=== PATIENT | male | born 1935 | race Caucasian/White ===

== ENCOUNTER 2020-08-25 08:39 | Outpatient (REF) | payer MEDICARE, OTHER, SELFPAY ==
[2020-08-25 09:41] LABS: MANUAL DIFF FLAG NO
[2020-08-25 09:47] LABS: Basophils Percent Auto 0.3 % (0-2); Eosinophils Absolute Auto 0.3 X10*3/uL (0.0-0.4); Eosinophils Percent Auto 2.5 % (0-4); Hematocrit 40.7 % (42-52); Hemoglobin 13.3 g/dl (14.0-18.0); Imm Gran Abs Auto 0.08 X10*3/uL (0.00-0.03); Imm Gran Pct Auto 0.8 % (0.0-0.4); Lymphocytes Absolute Auto 1.9 X10*3/uL (1.2-4.9); Lymphocytes Percent Auto 17.6 % (20-40); Mean Corpuscular HGB Conc 32.7 g/dl (31.0-36.0); Mean Corpuscular Hemoglobin 29.8 pg (27.0-33.0); Mean Corpuscular Volume 91.1 fL (80-98); Mean Platelet Volume 10.4 fL (9.4-12.4); Monocytes Absolute Auto 0.9 X10*3/uL (0.1-1.2); Monocytes Percent Auto 8.2 % (2-11); Neutrophils Absolute Auto 7.5 X10*3/uL (2.0-8.3); Neutrophils Percent Auto 70.6 % (45-73); Platelet Count 199 X10*3/uL (160-400); Red Blood Count 4.47 X10*6/uL (4.60-5.80); Red Cell Distribution Width 15.3 % (11.0-16.0); White Blood Count 10.6 X10*3/uL (4.8-10.8)
[2020-08-25 10:10] LABS: Alanine Aminotransferase 21 U/L (0-40); Albumin Level 4.2 g/dL (3.5-5.0); Alkaline Phosphatase 49 U/L (39-117); Anion Gap 13 (12-20); Aspartate Amino Transferase 16 U/L (5-37); Bilirubin Total 0.5 mg/dL (0.0-1.0); Blood Urea Nitrogen 30 mg/dL (9-16); Calcium 9.2 mg/dL (8.4-10.2); Carbon Dioxide 29 mmol/L (22-29); Chloride 104 mmol/L (96-108); Estimated Glomerular Filt Rate 57; Glucose Random 129 mg/dL (60-115); Potassium 4.6 mmol/l (3.3-5.1); Sodium 141 mmol/L (135-145); Total Protein 6.5 g/dL (6.5-8.0)
[2020-08-25 11:59] LABS: Erythrocyte Sedimentation Rate 6 MM/HR (0-15)
[2020-08-28 14:36] LABS: Prot Elec - Alpha1 0.3 g/dL (0.2-0.3); Prot Elec - Alpha2 0.7 g/dL (0.5-0.9); Prot Elec - Beta 1 0.4 g/dL (0.4-0.6); Prot Elec - Beta 2 0.3 g/dL (0.2-0.5); Prot Elec - Gamma 0.7 g/dL (0.8-1.7); Prot Elec - Total Protein 6.3 g/dL (6.1-8.1)
[2020-08-29 13:12] LABS: IgA 167 mg/dL (70-320); IgG 796 mg/dL (600-1540); IgM 42 mg/dL (50-300)
== END 2020-08-25 08:40 | disposition home or self-care (01) ==
LOC: HO.LAB 08:39
PROVIDERS: PCP Internal Medicine; Visit Provider Student in an Organized Health Care Education/Training Program
DX: M35.3 Polymyalgia rheumatica (principal)
CPT/HCPCS: 36415; 80053; 82784; 84155; 84165; 85025; 85652; 86140; 86334; 86335

== ENCOUNTER → 2020-09-01 14:20 | Outpatient (BNVA) | payer MEDICARE, OTHER, SELFPAY | PROVIDERS: PCP Internal Medicine; Referring Provider Internal Medicine; Visit Provider Student in an Organized Health Care Education/Training Program | DX: M35.3 Polymyalgia rheumatica (principal); D80.1 Nonfamilial hypogammaglobulinemia; Z79.52 Long term (current) use of systemic steroids | CPT/HCPCS: 99214 ==

== ENCOUNTER 2020-09-28 08:35 | Outpatient (REF) | payer MEDICARE, OTHER, SELFPAY ==
[2020-09-28 09:57] LABS: C Reactive Protein 0.09 mg/dL (< or = 0.50)
[2020-09-28 10:17] LABS: Erythrocyte Sedimentation Rate 2 MM/HR (0-15)
== END 2020-09-28 08:36 | disposition home or self-care (01) ==
LOC: HO.LAB 08:35
PROVIDERS: PCP Internal Medicine; Visit Provider Student in an Organized Health Care Education/Training Program
DX: M35.3 Polymyalgia rheumatica (principal)
CPT/HCPCS: 36415; 85652; 86140

== ENCOUNTER 2020-10-30 08:18 | Outpatient (REF) | payer MEDICARE, OTHER, SELFPAY ==
[2020-10-30 10:18] LABS: MANUAL DIFF FLAG NO
[2020-10-30 10:42] LABS: Basophils Percent Auto 0.2 % (0-2); Eosinophils Absolute Auto 0.2 X10*3/uL (0.0-0.4); Eosinophils Percent Auto 1.7 % (0-4); Hematocrit 42.6 % (42-52); Hemoglobin 13.9 g/dl (14.0-18.0); Imm Gran Abs Auto 0.07 X10*3/uL (0.00-0.03); Imm Gran Pct Auto 0.7 % (0.0-0.4); Lymphocytes Absolute Auto 1.7 X10*3/uL (1.2-4.9); Lymphocytes Percent Auto 18.5 % (20-40); Mean Corpuscular HGB Conc 32.6 g/dl (31.0-36.0); Mean Corpuscular Hemoglobin 30.2 pg (27.0-33.0); Mean Corpuscular Volume 92.6 fL (80-98); Monocytes Absolute Auto 0.9 X10*3/uL (0.1-1.2); Monocytes Percent Auto 9.8 % (2-11); Neutrophils Absolute Auto 6.5 X10*3/uL (2.0-8.3); Neutrophils Percent Auto 69.1 % (45-73); Platelet Count 222 X10*3/uL (160-400); White Blood Count 9.4 X10*3/uL (4.8-10.8)
[2020-10-30 11:01] LABS: Alanine Aminotransferase 20 U/L (0-40); Albumin Level 4.1 g/dL (3.5-5.0); Alkaline Phosphatase 42 U/L (39-117); Anion Gap 15 (12-20); Aspartate Amino Transferase 16 U/L (5-37); Bilirubin Total 0.7 mg/dL (0.0-1.0); Blood Urea Nitrogen 30 mg/dL (9-16); C Reactive Protein 0.07 mg/dL (< or = 0.50); Calcium 8.8 mg/dL (8.4-10.2); Carbon Dioxide 30 mmol/L (22-29); Chloride 103 mmol/L (96-108); Estimated Glomerular Filt Rate 52; Glucose Random 118 mg/dL (60-115); Potassium 4.3 mmol/l (3.3-5.1); Sodium 144 mmol/L (135-145); Total Protein 6.5 g/dL (6.5-8.0)
[2020-10-30 12:01] LABS: Erythrocyte Sedimentation Rate 3 MM/HR (0-15)
[2020-10-31 15:13] LABS: IgA 166 mg/dL (70-320); IgG 717 mg/dL (600-1540); IgM 40 mg/dL (50-300); Prot Elec - Albumin 3.9 g/dL (3.8-4.8); Prot Elec - Alpha1 0.3 g/dL (0.2-0.3); Prot Elec - Alpha2 0.6 g/dL (0.5-0.9); Prot Elec - Beta 1 0.4 g/dL (0.4-0.6); Prot Elec - Beta 2 0.3 g/dL (0.2-0.5); Prot Elec - Gamma 0.7 g/dL (0.8-1.7); Prot Elec - Total Protein 6.1 g/dL (6.1-8.1)
== END 2020-10-30 08:19 | disposition home or self-care (01) ==
LOC: HO.LAB 08:18
PROVIDERS: PCP Internal Medicine; Visit Provider Student in an Organized Health Care Education/Training Program
DX: M35.3 Polymyalgia rheumatica (principal)
CPT/HCPCS: 36415; 80053; 82784; 84155; 84165; 85025; 85652; 86140; 86334; 86335

== ENCOUNTER → 2020-11-22 08:43 | Outpatient (BNVA) | payer MEDICARE, OTHER, SELFPAY | PROVIDERS: PCP Internal Medicine; Visit Provider Student in an Organized Health Care Education/Training Program | DX: Z13.89 Encounter for screening for other disorder (principal) | CPT/HCPCS: Q3014 ==

== ENCOUNTER 2020-12-05 09:05 | Outpatient (REF) | payer MEDICARE, OTHER, SELFPAY ==
[2020-12-05 10:04] LABS: C Reactive Protein 0.03 mg/dL (< or = 0.50)
[2020-12-05 10:38] LABS: Erythrocyte Sedimentation Rate 2 MM/HR (0-15)
== END 2020-12-05 09:06 | disposition home or self-care (01) ==
LOC: HO.LAB 09:05
PROVIDERS: PCP Internal Medicine; Visit Provider Student in an Organized Health Care Education/Training Program
DX: M35.3 Polymyalgia rheumatica (principal)
CPT/HCPCS: 36415; 85652; 86140

== ENCOUNTER 2021-01-10 08:52 | Outpatient (REF) | payer MEDICARE, OTHER, SELFPAY ==
[2021-01-10 09:31] LABS: MANUAL DIFF FLAG NO
[2021-01-10 09:34] LABS: Basophils Percent Auto 0.4 % (0-2); Eosinophils Absolute Auto 0.2 X10*3/uL (0.0-0.4); Hemoglobin 13.5 g/dl (14.0-18.0); Imm Gran Abs Auto 0.06 X10*3/uL (0.00-0.03); Imm Gran Pct Auto 0.7 % (0.0-0.4); Lymphocytes Absolute Auto 1.5 X10*3/uL (1.2-4.9); Lymphocytes Percent Auto 17.7 % (20-40); Mean Corpuscular HGB Conc 33.8 g/dl (31.0-36.0); Mean Corpuscular Hemoglobin 31.1 pg (27.0-33.0); Mean Corpuscular Volume 92.2 fL (80-98); Mean Platelet Volume 10.6 fL (9.4-12.4); Monocytes Absolute Auto 0.8 X10*3/uL (0.1-1.2); Monocytes Percent Auto 9.5 % (2-11); Neutrophils Absolute Auto 5.9 X10*3/uL (2.0-8.3); Neutrophils Percent Auto 69.7 % (45-73); Platelet Count 209 X10*3/uL (160-400); Red Blood Count 4.34 X10*6/uL (4.60-5.80); Red Cell Distribution Width 13.3 % (11.0-16.0); White Blood Count 8.4 X10*3/uL (4.8-10.8)
[2021-01-10 10:01] LABS: Alanine Aminotransferase 21 U/L (0-40); Albumin Level 4.1 g/dL (3.5-5.0); Alkaline Phosphatase 47 U/L (39-117); Anion Gap 13 (12-20); Aspartate Amino Transferase 16 U/L (5-37); Bilirubin Total 0.7 mg/dL (0.0-1.0); Blood Urea Nitrogen 31 mg/dL (9-16); Calcium 9.6 mg/dL (8.4-10.2); Carbon Dioxide 31 mmol/L (22-29); Chloride 103 mmol/L (96-108); Estimated Glomerular Filt Rate 53; Glucose Random 112 mg/dL (60-115); Potassium 4.8 mmol/L (3.3-5.1); Sodium 142 mmol/L (135-145); Total Protein 6.2 g/dL (6.5-8.0)
[2021-01-12 15:17] LABS: IgA 154 mg/dL (70-320); IgG 650 mg/dL (600-1540); IgM 29 mg/dL (50-300)
== END 2021-01-10 08:53 | disposition home or self-care (01) ==
LOC: HO.LAB 08:52
PROVIDERS: PCP Internal Medicine; Visit Provider Internal Medicine Medical Oncology
DX: D80.1 Nonfamilial hypogammaglobulinemia (principal)
CPT/HCPCS: 36415; 80053; 82784; 85025; 86334

== ENCOUNTER 2021-01-30 11:22 | Outpatient (REF) | payer MEDICARE, OTHER, SELFPAY ==
[2021-01-30 13:01] LABS: C Reactive Protein 0.05 mg/dL (< or = 0.50)
[2021-01-30 14:44] LABS: Erythrocyte Sedimentation Rate 5 MM/HR (0-15)
== END 2021-01-30 11:23 | disposition home or self-care (01) ==
LOC: HO.LAB 11:22
PROVIDERS: PCP Internal Medicine; Visit Provider Student in an Organized Health Care Education/Training Program
DX: M35.3 Polymyalgia rheumatica (principal); D80.1 Nonfamilial hypogammaglobulinemia; Z87.891 Personal history of nicotine dependence; Z96.669 Presence of unspecified artificial ankle joint; Z96.653 Presence of artificial knee joint, bilateral; Z79.52 Long term (current) use of systemic steroids; Z79.82 Long term (current) use of aspirin; Z79.899 Other long term (current) drug therapy
CPT/HCPCS: 36415; 85652; 86140; 99212

== ENCOUNTER 2021-03-01 09:30 | Outpatient (REF) | payer MEDICARE, OTHER, SELFPAY ==
[2021-03-01 10:54] LABS: MANUAL DIFF FLAG NO
[2021-03-01 11:04] LABS: Basophils Percent Auto 0.4 % (0-2); Eosinophils Absolute Auto 0.1 X10*3/uL (0.0-0.4); Eosinophils Percent Auto 1.7 % (0-4); Hematocrit 40.1 % (42-52); Hemoglobin 13.3 g/dl (14.0-18.0); Imm Gran Abs Auto 0.04 X10*3/uL (0.00-0.03); Imm Gran Pct Auto 0.5 % (0.0-0.4); Lymphocytes Absolute Auto 1.1 X10*3/uL (1.2-4.9); Lymphocytes Percent Auto 14.9 % (20-40); Mean Corpuscular HGB Conc 33.2 g/dl (31.0-36.0); Mean Corpuscular Hemoglobin 30.7 pg (27.0-33.0); Mean Corpuscular Volume 92.6 fL (80-98); Mean Platelet Volume 10.9 fL (9.4-12.4); Monocytes Absolute Auto 0.7 X10*3/uL (0.1-1.2); Monocytes Percent Auto 9.3 % (2-11); Neutrophils Absolute Auto 5.6 X10*3/uL (2.0-8.3); Neutrophils Percent Auto 73.2 % (45-73); Platelet Count 225 X10*3/uL (160-400); Red Blood Count 4.33 X10*6/uL (4.60-5.80); Red Cell Distribution Width 13.3 % (11.0-16.0); White Blood Count 7.6 X10*3/uL (4.8-10.8)
[2021-03-01 11:22] LABS: Alanine Aminotransferase 27 U/L (0-40); Albumin Level 4.2 g/dL (3.5-5.0); Alkaline Phosphatase 50 U/L (39-117); Anion Gap 12 (12-20); Aspartate Amino Transferase 24 U/L (5-37); Bilirubin Total 0.8 mg/dL (0.0-1.0); Blood Urea Nitrogen 33 mg/dL (9-16); Calcium 9.1 mg/dL (8.4-10.2); Carbon Dioxide 29 mmol/L (22-29); Chloride 105 mmol/L (96-108); Estimated Glomerular Filt Rate 55; Glucose Random 114 mg/dL (60-115); Sodium 142 mmol/L (135-145); Total Protein 6.3 g/dL (6.5-8.0)
[2021-03-04 10:06] LABS: IgA 157 mg/dL (70-320); IgG 668 mg/dL (600-1540); IgM 31 mg/dL (50-300)
== END 2021-03-01 09:31 | disposition home or self-care (01) ==
LOC: HO.LAB 09:30
PROVIDERS: PCP Internal Medicine; Visit Provider Internal Medicine Medical Oncology
DX: D47.2 Monoclonal gammopathy (principal)
CPT/HCPCS: 36415; 80053; 82784; 85025; 86334

== ENCOUNTER 2021-03-22 16:01 | Outpatient (REF) | payer MEDICARE, OTHER, SELFPAY ==
--- NOTE | ~2021-03-22 | XR_ITS ---
EXAMINATION: XR CHEST CLINICAL INFORMATION: Hiccups COMPARISON: None TECHNIQUE: 2 views of the chest were obtained. FINDINGS: Median sternotomy wires appear intact. Surgical clips overlie the mediastinum. The lungs are well expanded. There is no focal consolidation, edema, or effusion. No pneumothorax. The cardiomediastinal silhouette is within normal limits of size with a calcified aorta. No acute osseous abnormality. Radiopaque anchor in the left humeral head. XR/XR chest 2V IMPRESSION: No acute pulmonary finding.
== END 2021-03-22 16:02 | disposition home or self-care (01) ==
LOC: HO.XRAY 16:01
PROVIDERS: PCP Internal Medicine; Visit Provider Internal Medicine
DX: R06.6 Hiccough (principal)
CPT/HCPCS: 71046

== ENCOUNTER 2021-03-30 06:31 | Outpatient (REF) | payer MEDICARE, OTHER, SELFPAY ==
[2021-03-30 07:04] LABS: MANUAL DIFF FLAG NO
[2021-03-30 07:07] LABS: Basophils Percent Auto 0.4 % (0-2); Eosinophils Absolute Auto 0.2 X10*3/uL (0.0-0.4); Eosinophils Percent Auto 1.6 % (0-4); Hematocrit 35.3 % (42-52); Hemoglobin 11.7 g/dl (14.0-18.0); Imm Gran Abs Auto 0.12 X10*3/uL (0.00-0.03); Imm Gran Pct Auto 1.1 % (0.0-0.4); Lymphocytes Absolute Auto 2.3 X10*3/uL (1.2-4.9); Lymphocytes Percent Auto 20.8 % (20-40); Mean Corpuscular HGB Conc 33.1 g/dl (31.0-36.0); Mean Corpuscular Hemoglobin 30.8 pg (27.0-33.0); Mean Corpuscular Volume 92.9 fL (80-98); Mean Platelet Volume 10.5 fL (9.4-12.4); Monocytes Absolute Auto 1.2 X10*3/uL (0.1-1.2); Monocytes Percent Auto 11.5 % (2-11); Neutrophils Percent Auto 64.6 % (45-73); Platelet Count 241 X10*3/uL (160-400); Red Cell Distribution Width 13.1 % (11.0-16.0); White Blood Count 10.8 X10*3/uL (4.8-10.8)
[2021-03-30 07:32] LABS: Alanine Aminotransferase 21 U/L (0-40); Albumin Level 4.1 g/dL (3.5-5.0); Alkaline Phosphatase 41 U/L (39-117); Anion Gap 13 (12-20); Aspartate Amino Transferase 16 U/L (5-37); Bilirubin Total 0.7 mg/dL (0.0-1.0); Blood Urea Nitrogen 57 mg/dL (9-16); C Reactive Protein 0.09 mg/dL (< or = 0.50); Calcium 9.4 mg/dL (8.4-10.2); Carbon Dioxide 29 mmol/L (22-29); Chloride 104 mmol/L (96-108); Estimated Glomerular Filt Rate 54; Glucose Random 125 mg/dL (60-115); Sodium 141 mmol/L (135-145)
[2021-03-30 08:02] LABS: Erythrocyte Sedimentation Rate 5 MM/HR (0-15)
[2021-04-02 09:52] LABS: IgA 144 mg/dL (70-320); IgG 620 mg/dL (600-1540); IgM 26 mg/dL (50-300)
== END 2021-03-30 06:32 | disposition home or self-care (01) ==
LOC: HO.LAB 06:31
PROVIDERS: Student in an Organized Health Care Education/Training Program; PCP Internal Medicine; Visit Provider Internal Medicine Medical Oncology
DX: M35.3 Polymyalgia rheumatica (principal); D80.1 Nonfamilial hypogammaglobulinemia
CPT/HCPCS: 36415; 80053; 82784; 85025; 85652; 86140; 86334

== ENCOUNTER 2021-04-03 09:17 | Outpatient (REF) | payer MEDICARE, OTHER, SELFPAY ==
[2021-04-03 09:44] LABS: MANUAL DIFF FLAG NO
[2021-04-03 09:47] LABS: Basophils Percent Auto 0.3 % (0-2); Eosinophils Absolute Auto 0.2 X10*3/uL (0.0-0.4); Eosinophils Percent Auto 1.5 % (0-4); Hematocrit 25.1 % (42-52); Hemoglobin 8.1 g/dl (14.0-18.0); Imm Gran Abs Auto 0.06 X10*3/uL (0.00-0.03); Imm Gran Pct Auto 0.6 % (0.0-0.4); Lymphocytes Absolute Auto 1.1 X10*3/uL (1.2-4.9); Lymphocytes Percent Auto 10.4 % (20-40); Mean Corpuscular HGB Conc 32.3 g/dl (31.0-36.0); Mean Platelet Volume 10.2 fL (9.4-12.4); Monocytes Absolute Auto 0.7 X10*3/uL (0.1-1.2); Monocytes Percent Auto 7.2 % (2-11); Neutrophils Absolute Auto 8.3 X10*3/uL (2.0-8.3); Platelet Count 214 X10*3/uL (160-400); Red Cell Distribution Width 14.2 % (11.0-16.0); White Blood Count 10.3 X10*3/uL (4.8-10.8)
[2021-04-03 10:16] LABS: Anion Gap 11 (12-20); Blood Urea Nitrogen 29 mg/dL (9-16); Calcium 8.5 mg/dL (8.4-10.2); Carbon Dioxide 27 mmol/L (22-29); Chloride 107 mmol/L (96-108); Estimated Glomerular Filt Rate > 60; Glucose Random 123 mg/dL (60-115); Sodium 141 mmol/L (135-145)
== END 2021-04-03 09:18 | disposition home or self-care (01) ==
LOC: HO.LAB 09:17
PROVIDERS: PCP Internal Medicine; Visit Provider Internal Medicine
DX: R53.83 Other fatigue (principal); D64.9 Anemia, unspecified
CPT/HCPCS: 36415; 80048; 85025

== ENCOUNTER 2021-04-04 06:01 | Outpatient (REF) | payer MEDICARE, OTHER, SELFPAY ==
[2021-04-04 06:26] LABS: MANUAL DIFF FLAG NO
[2021-04-04 06:27] LABS: Basophils Percent Auto 0.2 % (0-2); Eosinophils Absolute Auto 0.2 X10*3/uL (0.0-0.4); Eosinophils Percent Auto 2.1 % (0-4); Hemoglobin 8.2 g/dl (14.0-18.0); Imm Gran Abs Auto 0.05 X10*3/uL (0.00-0.03); Imm Gran Pct Auto 0.5 % (0.0-0.4); Lymphocytes Absolute Auto 1.5 X10*3/uL (1.2-4.9); Lymphocytes Percent Auto 14.2 % (20-40); Mean Corpuscular HGB Conc 32.8 g/dl (31.0-36.0); Mean Corpuscular Hemoglobin 30.8 pg (27.0-33.0); Mean Platelet Volume 9.2 fL (9.4-12.4); Monocytes Percent Auto 9.3 % (2-11); Neutrophils Absolute Auto 7.6 X10*3/uL (2.0-8.3); Neutrophils Percent Auto 73.7 % (45-73); Platelet Count 216 X10*3/uL (160-400); Red Blood Count 2.66 X10*6/uL (4.60-5.80); Red Cell Distribution Width 14.5 % (11.0-16.0); White Blood Count 10.2 X10*3/uL (4.8-10.8)
== END 2021-04-04 06:02 | disposition home or self-care (01) ==
LOC: HO.LAB 06:01
PROVIDERS: PCP Internal Medicine; Visit Provider Internal Medicine
DX: K92.2 Gastrointestinal hemorrhage, unspecified (principal); R53.83 Other fatigue
CPT/HCPCS: 36415; 85025

== ENCOUNTER 2021-04-06 09:48 | Outpatient (REF) | payer MEDICARE, OTHER, SELFPAY ==
[2021-04-06 10:14] LABS: MANUAL DIFF FLAG NO
[2021-04-06 10:17] LABS: Basophils Percent Auto 0.1 % (0-2); Eosinophils Percent Auto 0.3 % (0-4); Hematocrit 28.5 % (42-52); Hemoglobin 9.3 g/dl (14.0-18.0); Imm Gran Abs Auto 0.04 X10*3/uL (0.00-0.03); Imm Gran Pct Auto 0.4 % (0.0-0.4); Lymphocytes Absolute Auto 0.8 X10*3/uL (1.2-4.9); Lymphocytes Percent Auto 8.1 % (20-40); Mean Corpuscular HGB Conc 32.6 g/dl (31.0-36.0); Mean Corpuscular Hemoglobin 30.8 pg (27.0-33.0); Mean Corpuscular Volume 94.4 fL (80-98); Mean Platelet Volume 9.2 fL (9.4-12.4); Monocytes Absolute Auto 0.9 X10*3/uL (0.1-1.2); Monocytes Percent Auto 8.8 % (2-11); NRBC Pct Auto 0.2 /100WBC (0.0-0.2); Neutrophils Absolute Auto 8.1 X10*3/uL (2.0-8.3); Neutrophils Percent Auto 82.3 % (45-73); Platelet Count 243 X10*3/uL (160-400); Red Blood Count 3.02 X10*6/uL (4.60-5.80); Red Cell Distribution Width 14.3 % (11.0-16.0); White Blood Count 9.8 X10*3/uL (4.8-10.8)
[2021-04-06 10:46] LABS: Anion Gap 13 (12-20); Blood Urea Nitrogen 26 mg/dL (9-16); Carbon Dioxide 26 mmol/L (22-29); Chloride 109 mmol/L (96-108); Estimated Glomerular Filt Rate 58; Glucose Random 130 mg/dL (60-115); Potassium 4.2 mmol/L (3.3-5.1); Sodium 144 mmol/L (135-145)
== END 2021-04-06 09:49 | disposition home or self-care (01) ==
LOC: HO.LAB 09:48
PROVIDERS: PCP Internal Medicine; Visit Provider Internal Medicine
DX: D64.9 Anemia, unspecified (principal); R53.83 Other fatigue
CPT/HCPCS: 36415; 80048; 85025

== ENCOUNTER 2021-04-09 06:15 | Outpatient (REF) | payer MEDICARE, OTHER, SELFPAY ==
[2021-04-09 07:21] LABS: MANUAL DIFF FLAG NO
[2021-04-09 07:35] LABS: Basophils Percent Auto 0.2 % (0-2); Eosinophils Absolute Auto 0.1 X10*3/uL (0.0-0.4); Eosinophils Percent Auto 1.7 % (0-4); Hematocrit 31.4 % (42-52); Imm Gran Abs Auto 0.06 X10*3/uL (0.00-0.03); Imm Gran Pct Auto 0.7 % (0.0-0.4); Lymphocytes Percent Auto 11.5 % (20-40); Mean Corpuscular HGB Conc 31.8 g/dl (31.0-36.0); Mean Corpuscular Hemoglobin 30.6 pg (27.0-33.0); Monocytes Percent Auto 11.2 % (2-11); Neutrophils Absolute Auto 6.3 X10*3/uL (2.0-8.3); Neutrophils Percent Auto 74.7 % (45-73); Platelet Count 312 X10*3/uL (160-400); Red Blood Count 3.27 X10*6/uL (4.60-5.80); Red Cell Distribution Width 15.1 % (11.0-16.0); White Blood Count 8.5 X10*3/uL (4.8-10.8)
== END 2021-04-09 06:16 | disposition home or self-care (01) ==
LOC: HO.LAB 06:15
PROVIDERS: PCP Internal Medicine; Visit Provider Internal Medicine
DX: K92.2 Gastrointestinal hemorrhage, unspecified (principal)
CPT/HCPCS: 36415; 85025

== ENCOUNTER 2021-04-13 06:05 | Outpatient (REF) | payer MEDICARE, OTHER, SELFPAY ==
[2021-04-13 07:16] LABS: MANUAL DIFF FLAG NO
[2021-04-13 07:24] LABS: Basophils Percent Auto 0.3 % (0-2); Eosinophils Absolute Auto 0.2 X10*3/uL (0.0-0.4); Eosinophils Percent Auto 1.7 % (0-4); Hematocrit 34.4 % (42-52); Hemoglobin 10.9 g/dl (14.0-18.0); Imm Gran Abs Auto 0.06 X10*3/uL (0.00-0.03); Imm Gran Pct Auto 0.7 % (0.0-0.4); Lymphocytes Absolute Auto 1.1 X10*3/uL (1.2-4.9); Lymphocytes Percent Auto 12.2 % (20-40); Mean Corpuscular HGB Conc 31.7 g/dl (31.0-36.0); Mean Corpuscular Hemoglobin 30.6 pg (27.0-33.0); Mean Corpuscular Volume 96.6 fL (80-98); Mean Platelet Volume 10.3 fL (9.4-12.4); Monocytes Absolute Auto 1.1 X10*3/uL (0.1-1.2); Monocytes Percent Auto 12.1 % (2-11); Neutrophils Absolute Auto 6.5 X10*3/uL (2.0-8.3); Platelet Count 308 X10*3/uL (160-400); Red Blood Count 3.56 X10*6/uL (4.60-5.80); Red Cell Distribution Width 15.5 % (11.0-16.0); White Blood Count 8.9 X10*3/uL (4.8-10.8)
== END 2021-04-13 06:06 | disposition home or self-care (01) ==
LOC: HO.LAB 06:05
PROVIDERS: PCP Internal Medicine; Visit Provider Internal Medicine
DX: D64.9 Anemia, unspecified (principal)
CPT/HCPCS: 36415; 85025

== ENCOUNTER 2021-04-20 06:10 | Outpatient (REF) | payer MEDICARE, OTHER, SELFPAY ==
[2021-04-20 07:22] LABS: MANUAL DIFF FLAG NO
[2021-04-20 07:29] LABS: Basophils Percent Auto 0.3 % (0-2); Eosinophils Absolute Auto 0.2 X10*3/uL (0.0-0.4); Eosinophils Percent Auto 2.9 % (0-4); Hematocrit 37.5 % (42-52); Imm Gran Abs Auto 0.03 X10*3/uL (0.00-0.03); Imm Gran Pct Auto 0.4 % (0.0-0.4); Lymphocytes Absolute Auto 0.9 X10*3/uL (1.2-4.9); Lymphocytes Percent Auto 11.9 % (20-40); Mean Corpuscular Hemoglobin 30.6 pg (27.0-33.0); Mean Corpuscular Volume 95.7 fL (80-98); Mean Platelet Volume 10.6 fL (9.4-12.4); Monocytes Absolute Auto 0.8 X10*3/uL (0.1-1.2); Monocytes Percent Auto 11.1 % (2-11); Neutrophils Absolute Auto 5.4 X10*3/uL (2.0-8.3); Neutrophils Percent Auto 73.4 % (45-73); Platelet Count 226 X10*3/uL (160-400); Red Blood Count 3.92 X10*6/uL (4.60-5.80); Red Cell Distribution Width 14.6 % (11.0-16.0); White Blood Count 7.3 X10*3/uL (4.8-10.8)
== END 2021-04-20 06:11 | disposition home or self-care (01) ==
LOC: HO.LAB 06:10
PROVIDERS: PCP Internal Medicine; Visit Provider Internal Medicine
DX: D64.9 Anemia, unspecified (principal)
CPT/HCPCS: 36415; 85025

== ENCOUNTER → 2021-05-03 09:39 | Outpatient (BNVA) | payer MEDICARE, OTHER, SELFPAY | PROVIDERS: PCP Internal Medicine; Visit Provider Student in an Organized Health Care Education/Training Program | DX: M35.3 Polymyalgia rheumatica (principal); Z79.52 Long term (current) use of systemic steroids | CPT/HCPCS: 99212 ==

== ENCOUNTER 2021-05-04 06:03 | Outpatient (REF) | payer MEDICARE, OTHER, SELFPAY ==
[2021-05-04 07:47] LABS: MANUAL DIFF FLAG NO
[2021-05-04 07:53] LABS: Basophils Percent Auto 0.4 % (0-2); Eosinophils Absolute Auto 0.2 X10*3/uL (0.0-0.4); Eosinophils Percent Auto 2.5 % (0-4); Hematocrit 40.3 % (42-52); Hemoglobin 12.8 g/dl (14.0-18.0); Imm Gran Abs Auto 0.04 X10*3/uL (0.00-0.03); Imm Gran Pct Auto 0.6 % (0.0-0.4); Lymphocytes Absolute Auto 1.1 X10*3/uL (1.2-4.9); Lymphocytes Percent Auto 16.2 % (20-40); Mean Corpuscular HGB Conc 31.8 g/dl (31.0-36.0); Mean Corpuscular Hemoglobin 29.6 pg (27.0-33.0); Mean Corpuscular Volume 93.1 fL (80-98); Mean Platelet Volume 11.1 fL (9.4-12.4); Monocytes Absolute Auto 0.6 X10*3/uL (0.1-1.2); Monocytes Percent Auto 8.7 % (2-11); Neutrophils Absolute Auto 4.9 X10*3/uL (2.0-8.3); Neutrophils Percent Auto 71.6 % (45-73); Platelet Count 232 X10*3/uL (160-400); Red Blood Count 4.33 X10*6/uL (4.60-5.80); Red Cell Distribution Width 13.3 % (11.0-16.0); White Blood Count 6.8 X10*3/uL (4.8-10.8)
== END 2021-05-04 06:04 | disposition home or self-care (01) ==
LOC: HO.LAB 06:03
PROVIDERS: PCP Internal Medicine; Visit Provider Internal Medicine
DX: R53.83 Other fatigue (principal); K92.2 Gastrointestinal hemorrhage, unspecified
CPT/HCPCS: 36415; 85025

== ENCOUNTER 2021-05-18 05:57 | Outpatient (REF) | payer MEDICARE, OTHER, SELFPAY ==
[2021-05-18 07:16] LABS: MANUAL DIFF FLAG NO
[2021-05-18 07:19] LABS: Basophils Absolute Auto 0.1 X10*3/uL (0.0-0.2); Basophils Percent Auto 0.7 % (0-2); Eosinophils Absolute Auto 0.2 X10*3/uL (0.0-0.4); Eosinophils Percent Auto 2.3 % (0-4); Hematocrit 39.6 % (42-52); Hemoglobin 12.6 g/dl (14.0-18.0); Imm Gran Abs Auto 0.03 X10*3/uL (0.00-0.03); Imm Gran Pct Auto 0.4 % (0.0-0.4); Lymphocytes Absolute Auto 1.3 X10*3/uL (1.2-4.9); Lymphocytes Percent Auto 16.7 % (20-40); Mean Corpuscular HGB Conc 31.8 g/dl (31.0-36.0); Mean Corpuscular Hemoglobin 28.9 pg (27.0-33.0); Mean Corpuscular Volume 90.8 fL (80-98); Mean Platelet Volume 10.9 fL (9.4-12.4); Monocytes Absolute Auto 0.9 X10*3/uL (0.1-1.2); Monocytes Percent Auto 11.4 % (2-11); Neutrophils Absolute Auto 5.1 X10*3/uL (2.0-8.3); Neutrophils Percent Auto 68.5 % (45-73); Platelet Count 254 X10*3/uL (160-400); Red Blood Count 4.36 X10*6/uL (4.60-5.80); White Blood Count 7.5 X10*3/uL (4.8-10.8)
== END 2021-05-18 05:58 | disposition home or self-care (01) ==
LOC: HO.LAB 05:57
PROVIDERS: PCP Internal Medicine; Visit Provider Internal Medicine
DX: D64.9 Anemia, unspecified (principal)
CPT/HCPCS: 36415; 85025

== ENCOUNTER 2021-05-31 06:04 | Outpatient (REF) | payer MEDICARE, OTHER, SELFPAY ==
[2021-05-31 07:29] LABS: C Reactive Protein 0.06 mg/dL (< or = 0.50)
[2021-05-31 08:02] LABS: Erythrocyte Sedimentation Rate 5 MM/HR (0-15)
[2021-06-01 15:41] LABS: MANUAL DIFF FLAG NO
[2021-06-01 15:45] LABS: Basophils Absolute Auto 0.1 X10*3/uL (0.0-0.2); Basophils Percent Auto 0.7 % (0-2); Eosinophils Absolute Auto 0.2 X10*3/uL (0.0-0.4); Eosinophils Percent Auto 2.5 % (0-4); Hematocrit 40.1 % (42-52); Imm Gran Abs Auto 0.04 X10*3/uL (0.00-0.03); Imm Gran Pct Auto 0.5 % (0.0-0.4); Lymphocytes Absolute Auto 1.4 X10*3/uL (1.2-4.9); Lymphocytes Percent Auto 18.2 % (20-40); Mean Corpuscular HGB Conc 32.4 g/dl (31.0-36.0); Mean Corpuscular Hemoglobin 29.5 pg (27.0-33.0); Mean Corpuscular Volume 90.9 fL (80-98); Mean Platelet Volume 11.1 fL (9.4-12.4); Monocytes Percent Auto 12.9 % (2-11); Neutrophils Percent Auto 65.2 % (45-73); Platelet Count 222 X10*3/uL (160-400); Red Blood Count 4.41 X10*6/uL (4.60-5.80); Red Cell Distribution Width 13.3 % (11.0-16.0); White Blood Count 7.7 X10*3/uL (4.8-10.8)
== END 2021-05-31 06:05 | disposition home or self-care (01) ==
LOC: HO.LAB 06:04
PROVIDERS: PCP Internal Medicine; Visit Provider Student in an Organized Health Care Education/Training Program
DX: M35.3 Polymyalgia rheumatica (principal); D64.9 Anemia, unspecified
CPT/HCPCS: 36415; 85025; 85652; 86140

== ENCOUNTER 2021-07-02 05:58 | Outpatient (REF) | payer MEDICARE, OTHER, SELFPAY ==
[2021-07-02 06:40] LABS: MANUAL DIFF FLAG NO
[2021-07-02 06:53] LABS: Basophils Percent Auto 0.3 % (0-2); Eosinophils Absolute Auto 0.1 X10*3/uL (0.0-0.4); Eosinophils Percent Auto 0.6 % (0-4); Hematocrit 43.4 % (42-52); Hemoglobin 13.9 g/dl (14.0-18.0); Imm Gran Abs Auto 0.08 X10*3/uL (0.00-0.03); Imm Gran Pct Auto 0.7 % (0.0-0.4); Lymphocytes Absolute Auto 1.3 X10*3/uL (1.2-4.9); Lymphocytes Percent Auto 11.5 % (20-40); Mean Corpuscular Hemoglobin 28.9 pg (27.0-33.0); Mean Corpuscular Volume 90.2 fL (80-98); Mean Platelet Volume 10.9 fL (9.4-12.4); Monocytes Absolute Auto 1.1 X10*3/uL (0.1-1.2); Monocytes Percent Auto 9.8 % (2-11); Neutrophils Absolute Auto 8.4 X10*3/uL (2.0-8.3); Neutrophils Percent Auto 77.1 % (45-73); Platelet Count 241 X10*3/uL (160-400); Red Blood Count 4.81 X10*6/uL (4.60-5.80); Red Cell Distribution Width 13.8 % (11.0-16.0); White Blood Count 10.9 X10*3/uL (4.8-10.8)
== END 2021-07-02 05:59 | disposition home or self-care (01) ==
LOC: HO.LAB 05:58
PROVIDERS: PCP Internal Medicine; Visit Provider Internal Medicine
DX: D64.9 Anemia, unspecified (principal)
CPT/HCPCS: 36415; 85025

== ENCOUNTER → 2021-07-12 08:40 | Outpatient (BNVA) | payer MEDICARE, OTHER, SELFPAY | PROVIDERS: PCP Internal Medicine; Visit Provider Nurse Practitioner Family | DX: M35.3 Polymyalgia rheumatica (principal); Z87.891 Personal history of nicotine dependence; Z79.52 Long term (current) use of systemic steroids; Z79.899 Other long term (current) drug therapy | CPT/HCPCS: 99212 ==

== ENCOUNTER → 2021-08-09 09:28 | Outpatient (BNVA) | payer MEDICARE, OTHER, SELFPAY | PROVIDERS: PCP Internal Medicine; Visit Provider Nurse Practitioner Family | DX: M35.3 Polymyalgia rheumatica (principal); Z79.52 Long term (current) use of systemic steroids | CPT/HCPCS: 99212 ==

== ENCOUNTER 2021-08-10 05:59 | Outpatient (REF) | payer MEDICARE, OTHER, SELFPAY ==
[2021-08-10 08:18] LABS: C Reactive Protein 0.07 mg/dL (< or = 0.50)
[2021-08-10 08:49] LABS: Erythrocyte Sedimentation Rate 4 MM/HR (0-15)
== END 2021-08-10 06:00 | disposition home or self-care (01) ==
LOC: HO.LAB 05:59
PROVIDERS: PCP Internal Medicine; Visit Provider Nurse Practitioner Family
DX: M35.3 Polymyalgia rheumatica (principal)
CPT/HCPCS: 36415; 85652; 86140

== ENCOUNTER 2021-09-06 05:57 | Outpatient (REF) | payer MEDICARE, OTHER, SELFPAY ==
[2021-09-06 07:58] LABS: C Reactive Protein 0.08 mg/dL (< or = 0.50)
[2021-09-06 08:19] LABS: Erythrocyte Sedimentation Rate 5 MM/HR (0-15)
== END 2021-09-06 05:58 | disposition home or self-care (01) ==
LOC: HO.LAB 05:57
PROVIDERS: PCP Internal Medicine; Visit Provider Nurse Practitioner Family
DX: M35.3 Polymyalgia rheumatica (principal)
CPT/HCPCS: 36415; 85652; 86140

== ENCOUNTER → 2021-09-10 13:58 | Outpatient (BNVA) | payer MEDICARE, OTHER, SELFPAY | PROVIDERS: PCP Internal Medicine; Visit Provider Nurse Practitioner Family | DX: M35.3 Polymyalgia rheumatica (principal); Z79.52 Long term (current) use of systemic steroids | CPT/HCPCS: 99212 ==

== ENCOUNTER 2021-11-14 05:48 | Outpatient (REF) | payer MEDICARE, OTHER, SELFPAY ==
[2021-11-14 07:32] LABS: Alanine Aminotransferase 24 U/L (0-40); Albumin Level 4.5 g/dL (3.5-5.0); Alkaline Phosphatase 71 U/L (39-117); Anion Gap 13 (12-20); Aspartate Amino Transferase 14 U/L (5-37); Bilirubin Total 0.9 mg/dL (0.0-1.0); Blood Urea Nitrogen 28 mg/dL (9-16); Calcium 9.8 mg/dL (8.4-10.2); Carbon Dioxide 29 mmol/L (22-29); Chloride 105 mmol/L (96-108); Estimated Glomerular Filt Rate > 60; Glucose Random 107 mg/dL (60-115); Potassium 5.2 mmol/L (3.3-5.1); Sodium 142 mmol/L (135-145)
[2021-11-14 07:49] LABS: Erythrocyte Sedimentation Rate 2 MM/HR (0-15)
[2021-11-14 08:08] LABS: Estimated Average Glucose 111 mg/dL; Hemoglobin A1c % 5.5 %
== END 2021-11-14 05:49 | disposition home or self-care (01) ==
LOC: HO.LAB 05:48
PROVIDERS: Absent Provider Nurse Practitioner Family; PCP Internal Medicine; Visit Provider Internal Medicine
DX: M35.3 Polymyalgia rheumatica (principal); E11.9 Type 2 diabetes mellitus without complications
CPT/HCPCS: 36415; 80053; 83036; 85652

== ENCOUNTER 2021-12-05 05:59 | Outpatient (REF) | payer MEDICARE, SELFPAY ==
[2021-12-05 08:05] LABS: Alanine Aminotransferase 24 U/L (0-40); Albumin Level 4.2 g/dL (3.5-5.0); Alkaline Phosphatase 54 U/L (39-117); Anion Gap 13 (12-20); Aspartate Amino Transferase 18 U/L (5-37); Bilirubin Total 0.9 mg/dL (0.0-1.0); Blood Urea Nitrogen 23 mg/dL (9-16); C Reactive Protein 0.08 mg/dL (< or = 0.50); Calcium 9.4 mg/dL (8.4-10.2); Carbon Dioxide 29 mmol/L (22-29); Chloride 104 mmol/L (96-108); Estimated Glomerular Filt Rate 59; Glucose Random 99 mg/dL (60-115); Potassium 5.1 mmol/L (3.3-5.1); Sodium 141 mmol/L (135-145); Total Protein 6.6 g/dL (6.5-8.0)
[2021-12-05 08:15] LABS: Erythrocyte Sedimentation Rate 4 MM/HR (0-15)
[2021-12-05 08:40] LABS: Appearance Urine CLEAR; Color Urine YELLOW; Glucose Urine UA NEG (NEG); Leukocyte Esterase Urine NEG (NEG); Nitrite Urine NEG (NEG); Urine Blood NEG (NEG); Urine Ketones NEG (NEG); Urine Protein NEG (NEG-TRACE)
[2021-12-05 08:52] LABS: RBC Urine 0 /HPF (0); WBC Urine 0-2 /HPF (0-4)
== END 2021-12-05 06:00 | disposition home or self-care (01) ==
LOC: HO.LAB 05:59
PROVIDERS: PCP Internal Medicine; Visit Provider Nurse Practitioner Family
DX: M35.3 Polymyalgia rheumatica (principal)
CPT/HCPCS: 36415; 80053; 81001; 85652; 86140

== ENCOUNTER → 2021-12-10 12:49 | Outpatient (BNVA) | payer MEDICARE, SELFPAY | PROVIDERS: PCP Internal Medicine; Visit Provider Nurse Practitioner Family | DX: M35.3 Polymyalgia rheumatica (principal); Z79.52 Long term (current) use of systemic steroids | CPT/HCPCS: 99212 ==

== ENCOUNTER 2021-12-11 10:55 | Outpatient (REF) | payer MEDICARE, SELFPAY ==
[2021-12-11 11:25] LABS: MANUAL DIFF FLAG NO
[2021-12-11 11:38] LABS: Basophils Percent Auto 0.3 % (0-2); Eosinophils Absolute Auto 0.1 X10*3/uL (0.0-0.4); Eosinophils Percent Auto 1.5 % (0-4); Hemoglobin 13.7 g/dl (14.0-18.0); Imm Gran Abs Auto 0.02 X10*3/uL (0.00-0.03); Imm Gran Pct Auto 0.3 % (0.0-0.4); Lymphocytes Absolute Auto 1.1 X10*3/uL (1.2-4.9); Lymphocytes Percent Auto 18.3 % (20-40); Mean Corpuscular HGB Conc 33.4 g/dl (31.0-36.0); Mean Corpuscular Hemoglobin 30.5 pg (27.0-33.0); Mean Corpuscular Volume 91.3 fL (80.0-98.0); Mean Platelet Volume 9.8 fL (9.4-12.4); Monocytes Absolute Auto 0.7 X10*3/uL (0.1-1.2); Monocytes Percent Auto 11.1 % (2-11); Neutrophils Absolute Auto 4.1 x10*3/uL (2.0-8.3); Neutrophils Percent Auto 68.5 % (45-73); Platelet Count 216 X10*3/uL (160-400); Red Blood Count 4.49 X10*6/uL (4.60-5.80)
[2021-12-11 12:11] LABS: Alanine Aminotransferase 21 U/L (0-40); Albumin Level 4.4 g/dL (3.5-5.0); Alkaline Phosphatase 58 U/L (39-117); Anion Gap 13 (12-20); Aspartate Amino Transferase 18 U/L (5-37); Bilirubin Total 1.1 mg/dL (0.0-1.0); Blood Urea Nitrogen 25 mg/dL (9-16); Calcium 9.9 mg/dL (8.4-10.2); Carbon Dioxide 28 mmol/L (22-29); Chloride 103 mmol/L (96-108); Estimated Glomerular Filt Rate 54; Glucose Random 100 mg/dL (60-115); Sodium 139 mmol/L (135-145); Total Protein 6.9 g/dL (6.5-8.0)
[2021-12-16 06:45] LABS: IgA 180 mg/dL (70-320); IgG 883 mg/dL (600-1540); IgM 36 mg/dL (50-300)
== END 2021-12-11 10:56 | disposition home or self-care (01) ==
LOC: HO.LAB 10:55
PROVIDERS: Visit Provider Internal Medicine Medical Oncology
DX: D80.1 Nonfamilial hypogammaglobulinemia (principal)
CPT/HCPCS: 36415; 80053; 82784; 85025; 86334

== ENCOUNTER → 2022-03-19 20:52 | Outpatient (REF) | payer MEDICARE, SELFPAY | LOC: HO.SL 20:52 | PROVIDERS: Visit Provider Internal Medicine | DX: G47.33 Obstructive sleep apnea (adult) (pediatric) (principal) | CPT/HCPCS: 95811 ==

== ENCOUNTER 2022-06-03 05:54 | Outpatient (REF) | payer MEDICARE, SELFPAY ==
[2022-06-03 06:00] LABS: MANUAL DIFF FLAG NO
[2022-06-03 07:26] LABS: Basophils Percent Auto 0.4 % (0-2); Eosinophils Absolute Auto 0.2 X10*3/uL (0.0-0.4); Eosinophils Percent Auto 1.7 % (0-4); Hematocrit 42.1 % (42.0-52.0); Hemoglobin 13.8 g/dl (14.0-18.0); Imm Gran Abs Auto 0.04 X10*3/uL (0.00-0.03); Imm Gran Pct Auto 0.4 % (0.0-0.4); Lymphocytes Absolute Auto 1.4 X10*3/uL (1.2-4.9); Lymphocytes Percent Auto 15.6 % (20-40); Mean Corpuscular HGB Conc 32.8 g/dl (31.0-36.0); Mean Corpuscular Hemoglobin 29.7 pg (27.0-33.0); Mean Corpuscular Volume 90.7 fL (80.0-98.0); Mean Platelet Volume 10.6 fL (9.4-12.4); Monocytes Absolute Auto 0.9 X10*3/uL (0.1-1.2); Monocytes Percent Auto 9.7 % (2-11); Neutrophils Absolute Auto 6.5 x10*3/uL (2.0-8.3); Neutrophils Percent Auto 72.2 % (45-73); Platelet Count 209 X10*3/uL (160-400); Red Blood Count 4.64 X10*6/uL (4.60-5.80); Red Cell Distribution Width 13.5 % (11.0-16.0); White Blood Count 9.1 X10*3/uL (4.8-10.8)
[2022-06-03 07:53] LABS: Alanine Aminotransferase 31 U/L (0-40); Albumin Level 4.4 g/dL (3.5-5.0); Alkaline Phosphatase 49 U/L (39-117); Anion Gap 10 (12-20); Aspartate Amino Transferase 20 U/L (5-37); Bilirubin Total 0.8 mg/dL (0.0-1.0); Blood Urea Nitrogen 23 mg/dL (9-16); Calcium 9.1 mg/dL (8.4-10.2); Carbon Dioxide 30 mmol/L (22-29); Chloride 105 mmol/L (96-108); Cholesterol 136 mg/dL; Estimated Glomerular Filt Rate > 60; Glucose Fasting 93 mg/dL (60-99); HDL Cholesterol 54 mg/dL; LDL Cholesterol Calculated 61 mg/dl; Potassium 4.7 mmol/L (3.3-5.1); Sodium 140 mmol/L (135-145); Total Protein 6.7 g/dL (6.5-8.0); Triglycerides 105 mg/dL
[2022-06-03 08:17] LABS: Free T4 (Free Thyroxine) 1.13 ng/dL (0.71-1.85); Thyroid Stimulating Hormone 1.15 uIU/mL (0.32-4.0)
[2022-06-03 08:18] LABS: Erythrocyte Sedimentation Rate 2 MM/HR (0-15)
[2022-06-03 15:49] LABS: C Reactive Protein 0.03 mg/dL (< or = 0.50)
== END 2022-06-03 05:55 | disposition home or self-care (01) ==
LOC: HO.LAB 05:54
PROVIDERS: Nurse Practitioner Family; PCP Internal Medicine; Visit Provider Internal Medicine
DX: M35.3 Polymyalgia rheumatica (principal); R53.83 Other fatigue; E78.5 Hyperlipidemia, unspecified
CPT/HCPCS: 36415; 80053; 80061; 84439; 84443; 85025; 85652; 86140

== ENCOUNTER → 2022-06-07 12:39 | Outpatient (BNVA) | payer MEDICARE, SELFPAY | PROVIDERS: PCP Internal Medicine; Visit Provider Nurse Practitioner Family | DX: M35.3 Polymyalgia rheumatica (principal); Z79.52 Long term (current) use of systemic steroids | CPT/HCPCS: Q3014 ==

== ENCOUNTER 2022-08-14 06:03 | Outpatient (REF) | payer MEDICARE, SELFPAY ==
[2022-08-14 06:10] LABS: MANUAL DIFF FLAG NO
[2022-08-14 07:38] LABS: Basophils Percent Auto 0.5 % (0-2); Eosinophils Absolute Auto 0.2 X10*3/uL (0.0-0.4); Hematocrit 40.4 % (42.0-52.0); Hemoglobin 13.2 g/dl (14.0-18.0); Imm Gran Abs Auto 0.04 X10*3/uL (0.00-0.03); Imm Gran Pct Auto 0.5 % (0.0-0.4); Lymphocytes Absolute Auto 1.2 X10*3/uL (1.2-4.9); Lymphocytes Percent Auto 15.1 % (20-40); Mean Corpuscular HGB Conc 32.7 g/dl (31.0-36.0); Mean Corpuscular Hemoglobin 29.7 pg (27.0-33.0); Mean Platelet Volume 10.5 fL (9.4-12.4); Monocytes Absolute Auto 0.8 X10*3/uL (0.1-1.2); Monocytes Percent Auto 10.4 % (2-11); Neutrophils Absolute Auto 5.6 x10*3/uL (2.0-8.3); Neutrophils Percent Auto 71.5 % (45-73); Platelet Count 247 X10*3/uL (160-400); Red Blood Count 4.44 X10*6/uL (4.60-5.80); Red Cell Distribution Width 13.5 % (11.0-16.0); White Blood Count 7.9 X10*3/uL (4.8-10.8)
[2022-08-14 07:53] LABS: Alanine Aminotransferase 29 U/L (0-40); Albumin Level 4.4 g/dL (3.5-5.0); Alkaline Phosphatase 67 U/L (39-117); Anion Gap 16 (12-20); Aspartate Amino Transferase 22 U/L (5-37); Bilirubin Direct 0.4 mg/dL (0.0-0.5); Bilirubin Total 1.1 mg/dL (0.0-1.0); Blood Urea Nitrogen 25 mg/dL (9-16); Carbon Dioxide 25 mmol/L (22-29); Chloride 105 mmol/L (96-108); Cholesterol 130 mg/dL; Estimated Glomerular Filt Rate > 60; Glucose Fasting 86 mg/dL (60-99); HDL Cholesterol 40 mg/dL; LDL Cholesterol Calculated 63 mg/dl; Potassium 4.9 mmol/L (3.3-5.1); Sodium 141 mmol/L (135-145); Total Protein 6.8 g/dL (6.5-8.0); Triglycerides 136 mg/dL
[2022-08-14 08:17] LABS: Prostate Specific Antigen 0.55 ng/mL (<0.05-4.0)
== END 2022-08-14 06:04 | disposition home or self-care (01) ==
LOC: HO.LAB 06:03
PROVIDERS: PCP Internal Medicine; Visit Provider Internal Medicine
DX: Z00.00 Encounter for general adult medical examination without abnormal findings (principal); Z12.5 Encounter for screening for malignant neoplasm of prostate; R53.83 Other fatigue; E78.5 Hyperlipidemia, unspecified
CPT/HCPCS: 36415; 80051; 80061; 80076; 82565; 82947; 84153; 84520; 85025

== ENCOUNTER 2022-12-17 08:00 | Outpatient (RCR) | payer MEDICARE, SELFPAY | END 2022-12-26 13:51 | disposition home or self-care (01) | LOC: HO.PT 08:00 | PROVIDERS: PCP Internal Medicine | DX: M54.16 Radiculopathy, lumbar region (principal) | CPT/HCPCS: 97110; 97162 ==

== ENCOUNTER 2023-02-27 05:54 | Outpatient (REF) | payer MEDICARE, SELFPAY ==
[2023-02-27 05:57] LABS: MANUAL DIFF FLAG NO
[2023-02-27 06:14] LABS: Basophils Absolute Auto 0.1 X10*3/uL (0.0-0.2); Basophils Percent Auto 0.6 % (0-2); Eosinophils Absolute Auto 0.3 X10*3/uL (0.0-0.4); Eosinophils Percent Auto 2.6 % (0-4); Hematocrit 25.2 % (42.0-52.0); Hemoglobin 8.6 g/dl (14.0-18.0); Imm Gran Abs Auto 0.58 X10*3/uL (0.00-0.03); Imm Gran Pct Auto 4.6 % (0.0-0.4); Lymphocytes Absolute Auto 0.9 X10*3/uL (1.2-4.9); Mean Corpuscular HGB Conc 34.1 g/dl (31.0-36.0); Mean Corpuscular Hemoglobin 30.4 pg (27.0-33.0); Monocytes Absolute Auto 1.2 X10*3/uL (0.1-1.2); Monocytes Percent Auto 9.5 % (2-11); NRBC Pct Auto 0.2 /100WBC (0.0-0.2); Neutrophils Absolute Auto 9.6 x10*3/uL (2.0-8.3); Neutrophils Percent Auto 75.7 % (45-73); Platelet Count 456 X10*3/uL (160-400); Red Blood Count 2.83 X10*6/uL (4.60-5.80); White Blood Count 12.7 X10*3/uL (4.8-10.8)
[2023-02-27 06:25] LABS: Alanine Aminotransferase 147 U/L (0-40); Albumin Level 2.7 g/dL (3.5-5.0); Alkaline Phosphatase 87 U/L (39-117); Anion Gap 12 (12-20); Aspartate Amino Transferase 86 U/L (5-37); Bilirubin Total 0.7 mg/dL (0.0-1.0); Blood Urea Nitrogen 19 mg/dL (9-16); Carbon Dioxide 28 mmol/L (22-29); Chloride 102 mmol/L (96-108); Estimated Glomerular Filt Rate > 60; Glucose Random 103 mg/dL (60-115); Potassium 3.6 mmol/L (3.3-5.1); Sodium 138 mmol/L (135-145); Total Protein 4.6 g/dL (6.5-8.0)
== END 2023-02-27 05:55 | disposition home or self-care (01) ==
LOC: HO.MMNH1L 05:54
PROVIDERS: Visit Provider Family Medicine
DX: E78.5 Hyperlipidemia, unspecified (principal); I25.10 Atherosclerotic heart disease of native coronary artery without angina pectoris
CPT/HCPCS: 36415; 80053; 85025

== ENCOUNTER 2023-02-28 05:52 | Outpatient (REF) | payer MEDICARE, SELFPAY ==
[2023-02-28 05:55] LABS: MANUAL DIFF FLAG NO
[2023-02-28 06:11] LABS: Basophils Absolute Auto 0.1 X10*3/uL (0.0-0.2); Basophils Percent Auto 0.4 % (0-2); Eosinophils Absolute Auto 0.4 X10*3/uL (0.0-0.4); Eosinophils Percent Auto 3.2 % (0-4); Hemoglobin 9.5 g/dl (14.0-18.0); Imm Gran Abs Auto 0.52 X10*3/uL (0.00-0.03); Lymphocytes Absolute Auto 1.2 X10*3/uL (1.2-4.9); Lymphocytes Percent Auto 9.4 % (20-40); Mean Corpuscular HGB Conc 33.9 g/dl (31.0-36.0); Mean Corpuscular Hemoglobin 30.4 pg (27.0-33.0); Mean Corpuscular Volume 89.7 fL (80.0-98.0); Mean Platelet Volume 8.8 fL (9.4-12.4); Monocytes Percent Auto 7.9 % (2-11); Neutrophils Absolute Auto 9.8 x10*3/uL (2.0-8.3); Neutrophils Percent Auto 75.1 % (45-73); Platelet Count 504 X10*3/uL (160-400); Red Blood Count 3.12 X10*6/uL (4.60-5.80); Red Cell Distribution Width 13.1 % (11.0-16.0); White Blood Count 13.1 X10*3/uL (4.8-10.8)
== END 2023-02-28 05:53 | disposition home or self-care (01) ==
LOC: HO.MMNH1L 05:52
PROVIDERS: Visit Provider Family Medicine
DX: I10 Essential (primary) hypertension (principal)
CPT/HCPCS: 36415; 85025

== ENCOUNTER 2023-03-03 06:40 | Outpatient (REF) | payer MEDICARE, SELFPAY ==
[2023-03-03 06:44] LABS: MANUAL DIFF FLAG NO
[2023-03-03 06:58] LABS: Basophils Absolute Auto 0.1 X10*3/uL (0.0-0.2); Basophils Percent Auto 0.6 % (0-2); Eosinophils Absolute Auto 0.5 X10*3/uL (0.0-0.4); Eosinophils Percent Auto 5.9 % (0-4); Hematocrit 27.8 % (42.0-52.0); Imm Gran Abs Auto 0.31 X10*3/uL (0.00-0.03); Imm Gran Pct Auto 3.5 % (0.0-0.4); Lymphocytes Absolute Auto 1.2 X10*3/uL (1.2-4.9); Mean Corpuscular HGB Conc 32.4 g/dl (31.0-36.0); Mean Corpuscular Hemoglobin 29.6 pg (27.0-33.0); Mean Corpuscular Volume 91.4 fL (80.0-98.0); Mean Platelet Volume 8.7 fL (9.4-12.4); Monocytes Absolute Auto 0.7 X10*3/uL (0.1-1.2); Monocytes Percent Auto 8.3 % (2-11); Neutrophils Absolute Auto 6.1 x10*3/uL (2.0-8.3); Neutrophils Percent Auto 68.7 % (45-73); Platelet Count 641 X10*3/uL (160-400); Red Blood Count 3.04 X10*6/uL (4.60-5.80); Red Cell Distribution Width 13.3 % (11.0-16.0); White Blood Count 8.9 X10*3/uL (4.8-10.8)
[2023-03-03 07:42] LABS: Anion Gap 12 (12-20); Blood Urea Nitrogen 18 mg/dL (9-16); Calcium 7.9 mg/dL (8.4-10.2); Carbon Dioxide 27 mmol/L (22-29); Chloride 106 mmol/L (96-108); Estimated Glomerular Filt Rate > 60; Glucose Random 79 mg/dL (60-115); Sodium 141 mmol/L (135-145)
== END 2023-03-03 06:41 | disposition home or self-care (01) ==
LOC: HO.MMNH1L 06:40
PROVIDERS: Visit Provider Family Medicine
DX: E78.5 Hyperlipidemia, unspecified (principal); I25.10 Atherosclerotic heart disease of native coronary artery without angina pectoris
CPT/HCPCS: 36415; 80048; 85025

== ENCOUNTER 2023-06-02 06:04 | Outpatient (REF) | payer MEDICARE, SELFPAY ==
[2023-06-02 09:01] LABS: MANUAL DIFF FLAG NO
[2023-06-02 09:06] LABS: Basophils Percent Auto 0.7 % (0-2); Eosinophils Absolute Auto 0.3 X10*3/uL (0.0-0.4); Eosinophils Percent Auto 4.2 % (0-4); Hemoglobin 12.6 g/dl (14.0-18.0); Imm Gran Abs Auto 0.01 X10*3/uL (0.00-0.03); Imm Gran Pct Auto 0.2 % (0.0-0.4); Lymphocytes Absolute Auto 1.2 X10*3/uL (1.2-4.9); Lymphocytes Percent Auto 19.3 % (20-40); Mean Corpuscular HGB Conc 32.3 g/dl (31.0-36.0); Mean Corpuscular Hemoglobin 28.8 pg (27.0-33.0); Mean Platelet Volume 10.5 fL (9.4-12.4); Monocytes Absolute Auto 0.6 X10*3/uL (0.1-1.2); Monocytes Percent Auto 10.8 % (2-11); Neutrophils Absolute Auto 3.9 x10*3/uL (2.0-8.3); Neutrophils Percent Auto 64.8 % (45-73); Platelet Count 315 X10*3/uL (160-400); Red Blood Count 4.38 X10*6/uL (4.60-5.80); Red Cell Distribution Width 14.4 % (11.0-16.0)
[2023-06-02 09:16] LABS: Estimated Average Glucose 114 mg/dL; Hemoglobin A1c % 5.6 %
== END 2023-06-02 06:05 | disposition home or self-care (01) ==
LOC: HO.LAB 06:04
PROVIDERS: PCP Internal Medicine; Visit Provider Internal Medicine
DX: R53.83 Other fatigue (principal); E11.9 Type 2 diabetes mellitus without complications
CPT/HCPCS: 36415; 83036; 85025

== ENCOUNTER 2023-06-30 10:47 | Outpatient (REF) | payer MEDICARE, SELFPAY ==
--- NOTE | ~2023-06-30 | XR_ITS ---
EXAMINATION: XR CHEST CLINICAL INFORMATION: Cough, status post Covid COMPARISON: Chest 03/22/2021 TECHNIQUE: 2 views of the chest were obtained. FINDINGS: The patient is status post median sternotomy for CABG surgery. No significant abnormality is noted involving the heart, lungs, mediastinum, bony thorax or soft tissues. XR/XR chest 2V IMPRESSION: No acute cardiopulmonary disease.
== END 2023-06-30 10:48 | disposition home or self-care (01) ==
LOC: HO.XRAY 10:47
PROVIDERS: PCP Internal Medicine; Visit Provider Internal Medicine
DX: R05.9 Cough, unspecified (principal); Z86.16 Personal history of COVID-19
CPT/HCPCS: 71046

== ENCOUNTER 2023-08-06 10:16 | Outpatient (REF) | payer MEDICARE, SELFPAY ==
--- NOTE | ~2023-08-06 | XR_ITS ---
EXAMINATION: XR CERVICAL SPINE CLINICAL INFORMATION: Cervical pain and limited range of motion. COMPARISON: None available. TECHNIQUE: 3 views of the cervical spine were obtained. FINDINGS: Minimal reversal of the lower cervical lordosis. No acute fracture or subluxation. No loss of vertebral body height. Loss of intervertebral disc height with prominent degenerative endplate changes at C5-C6 and C6-C7. More mild remaining intervertebral disc degeneration. Prominent multilevel bilateral facet arthropathy. No concerning lytic or blastic osseous lesion. Normal atlantoaxial alignment. Unremarkable prevertebral soft tissues. XR/XR cervical spine 3V IMPRESSION: 1. Minimal reversal of the lower cervical lordosis. 2. Multilevel degenerative disc disease, most prominent at C5-C6 and C6-C7. Prominent multilevel bilateral facet arthropathy.
== END 2023-08-06 10:17 | disposition home or self-care (01) ==
LOC: HO.XRAY 10:16
PROVIDERS: PCP Internal Medicine; Visit Provider Internal Medicine
DX: M54.2 Cervicalgia (principal)
CPT/HCPCS: 72040

== ENCOUNTER 2023-10-24 06:00 | Outpatient (REF) | payer MEDICARE, SELFPAY ==
[2023-10-24 06:14] LABS: MANUAL DIFF FLAG NO
[2023-10-24 07:57] LABS: Estimated Average Glucose 120 mg/dL; Hemoglobin A1c % 5.8 % (<6.0)
[2023-10-24 08:00] LABS: Basophils Percent Auto 0.5 % (0-2); Eosinophils Absolute Auto 0.1 X10*3/uL (0.0-0.4); Eosinophils Percent Auto 2.4 % (0-4); Hematocrit 39.9 % (42.0-52.0); Imm Gran Abs Auto 0.03 X10*3/uL (0.00-0.03); Imm Gran Pct Auto 0.5 % (0.0-0.4); Lymphocytes Absolute Auto 1.1 X10*3/uL (1.2-4.9); Lymphocytes Percent Auto 19.2 % (20-40); Mean Corpuscular HGB Conc 32.6 g/dl (31.0-36.0); Mean Corpuscular Hemoglobin 29.8 pg (27.0-33.0); Mean Corpuscular Volume 91.5 fL (80.0-98.0); Mean Platelet Volume 10.5 fL (9.4-12.4); Monocytes Absolute Auto 0.6 X10*3/uL (0.1-1.2); Monocytes Percent Auto 10.7 % (2-11); Neutrophils Absolute Auto 3.8 x10*3/uL (2.0-8.3); Neutrophils Percent Auto 66.7 % (45-73); Platelet Count 242 X10*3/uL (160-400); Red Blood Count 4.36 X10*6/uL (4.60-5.80); Red Cell Distribution Width 13.5 % (11.0-16.0); White Blood Count 5.7 X10*3/uL (4.8-10.8)
[2023-10-24 08:33] LABS: Alanine Aminotransferase 22 U/L (0-40); Albumin Level 4.1 g/dL (3.5-5.0); Alkaline Phosphatase 60 U/L (39-117); Anion Gap 12 (12-20); Aspartate Amino Transferase 16 U/L (5-37); Bilirubin Total 0.5 mg/dL (0.0-1.0); Blood Urea Nitrogen 27 mg/dL (9-16); Calcium 9.3 mg/dL (8.4-10.2); Carbon Dioxide 30 mmol/L (22-29); Chloride 108 mmol/L (96-108); Cholesterol 124 mg/dL (<200); Estimated Glomerular Filt Rate > 60; Glucose Random 91 mg/dL (60-115); HDL Cholesterol 43 mg/dL (>40); LDL Cholesterol Calculated 63 mg/dL (<100); Potassium 4.5 mmol/L (3.3-5.1); Sodium 145 mmol/L (135-145); Total Protein 6.7 g/dL (6.5-8.0); Triglycerides 90 mg/dL (<150)
== END 2023-10-24 06:01 | disposition home or self-care (01) ==
LOC: HO.LAB 06:00
PROVIDERS: PCP Internal Medicine; Visit Provider Internal Medicine
DX: Z00.00 Encounter for general adult medical examination without abnormal findings (principal); Z12.5 Encounter for screening for malignant neoplasm of prostate; E11.9 Type 2 diabetes mellitus without complications
CPT/HCPCS: 36415; 80053; 80061; 83036; 84153; 85025

== ENCOUNTER 2025-03-25 05:58 | Outpatient (REF) | payer MEDICARE, SELFPAY ==
[2025-03-25 06:13] LABS: MANUAL DIFF FLAG NO
[2025-03-25 07:43] LABS: Basophils Percent Auto 0.4 % (0-2); Eosinophils Absolute Auto 0.2 X10*3/uL (0.0-0.4); Hematocrit 37.7 % (42.0-52.0); Hemoglobin 12.8 g/dl (14.0-18.0); Imm Gran Abs Auto 0.02 X10*3/uL (0.00-0.03); Imm Gran Pct Auto 0.3 % (0.0-0.4); Lymphocytes Absolute Auto 1.2 X10*3/uL (1.2-4.9); Lymphocytes Percent Auto 17.4 % (20-40); Mean Corpuscular Hemoglobin 29.8 pg (27.0-33.0); Mean Corpuscular Volume 87.9 fL (80.0-98.0); Mean Platelet Volume 10.7 fL (9.4-12.4); Monocytes Absolute Auto 0.8 X10*3/uL (0.1-1.2); Monocytes Percent Auto 11.5 % (2-11); Neutrophils Absolute Auto 4.5 x10*3/uL (2.0-8.3); Neutrophils Percent Auto 67.4 % (45-73); Platelet Count 222 X10*3/uL (160-400); Red Blood Count 4.29 X10*6/uL (4.60-5.80); Red Cell Distribution Width 14.1 % (11.0-16.0); White Blood Count 6.7 X10*3/uL (4.8-10.8)
[2025-03-25 08:22] LABS: Alanine Aminotransferase 32 U/L (0-40); Albumin Level 4.2 g/dL (3.5-5.0); Alkaline Phosphatase 75 U/L (39-117); Anion Gap 12 (12-20); Aspartate Amino Transferase 27 U/L (5-37); Bilirubin Total 0.7 mg/dL (0.0-1.0); Blood Urea Nitrogen 40 mg/dL (9-16); Calcium 9.3 mg/dL (8.4-10.2); Carbon Dioxide 27 mmol/L (22-29); Chloride 106 mmol/L (96-108); Cholesterol 116 mg/dL (<200); Estimated Glomerular Filt Rate > 60; Glucose Fasting 94 mg/dL (60-99); HDL Cholesterol 37 mg/dL (>40); LDL Cholesterol Calculated 63 mg/dL (<100); Potassium 4.6 mmol/L (3.3-5.1); Sodium 140 mmol/L (135-145); Total Protein 6.8 g/dL (6.5-8.0); Triglycerides 82 mg/dL (<150)
[2025-03-25 08:38] LABS: Prostate Specific Antigen 0.48 ng/mL (<0.05-4.0)
== END 2025-03-25 05:59 | disposition home or self-care (01) ==
LOC: HO.LAB 05:58
PROVIDERS: PCP Internal Medicine; Visit Provider Internal Medicine
DX: E78.5 Hyperlipidemia, unspecified (principal); Z12.5 Encounter for screening for malignant neoplasm of prostate; R53.83 Other fatigue
CPT/HCPCS: 36415; 80053; 80061; 84153; 85025

== ENCOUNTER 2025-05-03 09:33 | Outpatient (AMB) | payer MEDICARE, SELFPAY ==
--- NOTE | 2025-05-03 09:55 | A.OFFPC_ITS ---
Vital Signs 05/03/25 10:07 Height 5 ft 10 in Weight 172 lb 0.8 oz BMI 24.7 BP 124/60 Blood Pressure Location Rt brachial Pulse 62 Pulse Source Pulse Oximeter Temp 97.9 F Pulse Oximetry (%) 96 Intake Visit Reasons: Est Care ~ transfer of Care Intake Note: just lost his two months ago and is feeling down over that but no other issues Allergies No Known Allergies [No Known Allergies*] Allergy (Verified 05/03/25 10:14) Medication List - Last Reconciled 05/03/25 by Aiyana Villanueva PA-C atorvastatin 80 mg PO DAILY cholecalciferol (vitamin D3) (Vitamin D3) 50 mcg PO DAILY citalopram 10 mg PO DAILY clopidogrel 75 mg PO DAILY cyanocobalamin (vitamin B-12) 1,000 mcg PO DAILY metoprolol succinate ER 25 mg PO DAILY multivitamin 1 tab PO DAILY vit C,X-Kc-rqyve-lutein-zeaxan 250-90-40-1 mg (PreserVision AREDS-2) 1 tab PO DAILY HPI Est Care ~ transfer of Care HPI Details The patient is an 89-year-old male presenting for the establishment of care with a new primary care provider. The patient has a history of hyperlipidemia, managed with atorvastatin 80 mg. He also has a vitamin D deficiency, for which he is taking supplements. The patient reports a history of anxiety and depression, managed with citalopram 10 mg. He denies any acute complaints related to these conditions during the visit. The patient underwent a coronary artery bypass grafting procedure following an abnormal EKG detected prior to knee surgery. He reports no current cardiac symptoms and is on metoprolol and an antiplatelet medication. The patient has a history of polymyalgia rheumatica, which was treated with prednisone, and he reports that the condition has resolved. He continues to receive cortisone injections for chronic shoulder pain unrelated to polymyalgia rheumatica. The patient has a history of anemia, with recent lab results showing hemoglobin and hematocrit levels of 12.8 and 37.7, respectively. His BUN was noted to be elevated at 40, indicating possible dehydration. The patient lives alone following the recent passing of his and reports feeling not good emotionally, though he maintains regular contact with his daughter for support. 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 History of ankle joint replacement History of bilateral knee replacement Family History Sister Diabetes Mother Asthma Social History Household Members: Spouse Housing: House Are you a primary health care sanitary technician to a significant other at home: No Do you presently have visiting nurse or other home services: No Alcohol intake: current Alcohol intake frequency: a few times a month Alcohol type: beer and hard liquor Patient Tobacco Use Status: Former Tobacco user Cigarette Packs Per Day: 1 Years Smoked: 40 service: Yes Current occupational status: retired Questionnaire PHQ-9 Over the last 2 weeks, how often have you been bothered by any of the following problems? 1. Little interest or pleasure in doing things: more than half the days 2. Feeling down, depressed, or hopeless: more than half the days 3. Trouble falling or staying asleep, or sleeping too much: not at all 4. Feeling tired or having little energy: not at all 5. Poor appetite or overeating: not at all 6. Feeling bad about yourself - or that you are a failure or have let yourself or your family down: not at all 7. Trouble concentrating on things, such as reading the newspaper or watching television: more than half the days 8. Moving or speaking so slowly that other people could have noticed. Or the opposite - being so fidgety or restless that you have been moving around a lot more than usual: not at all 9. Thoughts that you would be better off or of hurting yourself in some way: not at all Total score: 6 Depression Screening Interpretation: Positive Depression Screening Follow-up: Existing condition and In treatment Depression Screening Done: Yes 55333 - PHQ-9 Billing: Yes Source: Developed by Drs. Lucien Bone, Colleen Esteban, Sanket Marrufo and colleagues, with an educational tashi from [employer]. Thrive Questionnaire Date Thrive assessed: 05/03/25 I am a: Patient What is your living situation today?: I have a steady place to live Within the past 12 months, did the food you bought not last and you didn't have the money to get more?: Never true Within the past 12 months, did you worry whether your food would run out before you got money to buy more?: Never true Do you have trouble paying for medicines?: No Do you have trouble getting transportation to medical appointments?: No Do you have trouble paying your heating and electricity bill?: No Do you have trouble taking care of your child, family member or friend?: No Do you have trouble with day-to-day activities such as bathing, preparing meals, shopping, managing finances, etc.?: No Are you currently unemployed and looking for a job?: No Are you interested in more education?: No THRIVE Score: 0 AUDIT C Alcohol Use Questionnaire (AUDIT-C) 1. How often do you have a drink containing alcohol?: Monthly or less 2. How many drinks containing alcohol do you have on a typical day when you are drinking?: 3 or 4 3. How often do you have six or more drinks on one occasion?: Never Total Score: 2 Score Reviewed/Action Taken: No Review of Systems Const Details: - Cardiovascular: Denies chest pain, palpitations, or dyspnea - Musculoskeletal: Reports chronic shoulder pain, receives cortisone injections - Psychological: Reports feeling not good emotionally due to recent bereavement, denies wanting to see a therapist Physical exam (Primary Care) Vital Signs: Last Vital Signs Temp 97.9 F 05/03/25 10:07 Pulse 62 05/03/25 10:07 BP 124/60 05/03/25 10:07 Pulse Ox 96 05/03/25 10:07 Care Plan Goal for BP management: <140/90 at Goal BMI result Body Mass Index 24.7 normal bmi Tobacco/Smoking Status: Tobacco use Status Patient Tobacco Use Status Former Tobacco user 05/03/25 10:08 PHQ-9: PHQ-9 Score PHQ-9: Total score 6 05/03/25 10:08 Depression Screening Interpretation: Positive Depression Screening Follow-up: Existing condition and In treatment Thrive Assessment: Date of Thrive Assessment Date Thrive assessed 05/03/25 05/03/25 10:08 Const Other: Appearance: Alert. Oriented X3. No acute distress. Head: Normal external exam. Normocephalic. Atraumatic. Eyes: Pupils are equal, round, and reactive to light. Extraocular movements intact. Conjunctiva and sclera normal. Eyelids normal. Ears: External auditory canal normal. Tympanic membranes normal. Ears cleaned out about a month ago, look good. Throat: Pharynx normal. Uvula midline. Moist mucous membranes. Wears dentures. Neck: Normal inspection. Neck supple. Full range of motion. No adenopathy. Thyroid Normal. No meningeal signs. No neck mass noted. Cardiovascular: Normal heart rate and rhythm. Heart sound normal. No murmurs noted. Pulses normal throughout. Heart sounds beautiful, regular today. Respiratory: No respiratory distress. Painless inspiration. Breath sounds normal. No wheezes/rales/rhonchi noted. Chest nontender. No accessory muscle usage noted or decreased air movement noted. Abdomen: Soft and nontender. Bowel sounds normal in all 4 quadrants. No distention noted. No organomegaly noted. No visible injury noted. Back: No costovertebral angle tenderness. Full range of motion noted. Skin: Skin warm and dry. Normal skin color. Normal skin turgor. No rashes/lesions/lacerations noted. Extremities: No lower extremity edema. Extremities exhibit normal range of motion. Extremities nontender. No leg swelling. Calves do not hurt upon palpation. Neuro: Oriented X 3. No motor deficit. No sensory deficit. Reflexes normal. Results Reviewed Results Reviewed: - Labs: Hemoglobin 12.8, Hematocrit 37.7, BUN 40, normal platelets, normal liver enzymes, cholesterol 116, LDL 63, HDL 37 Coding Level of Care Code New Pt Level 4 (22698) Complex EM visit Add On G2211 Diagnoses Establishing care with new doctor, encounter for Z76.89 Hyperlipidemia E78.5 Vitamin D deficiency E55.9 Anxiety and depression F41.9; F32.A History of coronary artery bypass graft Z95.1 Polymyalgia rheumatica M35.3 Anemia D64.9 Hypertension I10 Additional Codes PHQ-9 - 58987 - PHQ-9 Billing: Yes ([id number]) Assessment & Plan Assessment & Plan (1) Establishing care with new doctor, encounter for: Code(s): Z76.89 - Persons encountering health services in other specified circumstances Category: Medical (2) Hyperlipidemia: Code(s): E78.5 - Hyperlipidemia, unspecified Category: Medical Plan: The patient is currently on atorvastatin 80 mg for hyperlipidemia, which has effectively managed his cholesterol levels. No changes to the medication regimen were discussed during the visit. Condition is chronic and stable continue to monitor. (3) Vitamin D deficiency: Code(s): E55.9 - Vitamin D deficiency, unspecified Category: Medical Plan: The patient is taking vitamin D supplements to manage his deficiency. Continued supplementation was advised, with no changes discussed. Condition is chronic and stable will continue to monitor. (4) Anxiety and depression: Code(s): F41.9 - Anxiety disorder, unspecified; F32.A - Depression, unspecified Category: Medical Plan: The patient is on citalopram 10 mg for anxiety and depression. He denies any acute symptoms and no changes to his current treatment were discussed. Condition is chronic and stable will continue to monitor. (5) History of coronary artery bypass graft: Code(s): Z95.1 - Presence of aortocoronary bypass graft Category: Surgical Plan: The patient underwent coronary artery bypass grafting following an abnormal EKG detected prior to knee surgery. He is currently on metoprolol and an antiplatelet medication, with no changes to his cardiac management discussed. Condition is chronic and stable will continue to monitor. (6) Polymyalgia rheumatica: Code(s): M35.3 - Polymyalgia rheumatica Category: Medical Plan: The patient reports resolution of polymyalgia rheumatica after treatment with prednisone. He continues to receive cortisone injections for unrelated shoulder pain. Condition is chronic and stable will continue to monitor. (7) Anemia: Code(s): D64.9 - Anemia, unspecified Category: Medical Plan: The patient has a history of anemia with recent labs showing hemoglobin 12.8 and hematocrit 37.7. His BUN was elevated at 40, suggesting possible dehydration, and monitoring was advised. Condition is chronic and stable will continue to monitor. (8) Hypertension: Code(s): I10 - Essential (primary) hypertension Category: Medical Plan: The patient is on metoprolol for hypertension management. No changes to his antihypertensive regimen were discussed during the visit. Condition is chronic and stable continue to monitor. Plan Plan Patient was informed and verbally consented to the use of an ambient scribe for clinic note documentation during this visit. 1. Hyperlipidemia The patient is currently on atorvastatin 80 mg for hyperlipidemia, which has effectively managed his cholesterol levels. No changes to the medication regimen were discussed during the visit. 2. Vitamin D Deficiency The patient is taking vitamin D supplements to manage his deficiency. Continued supplementation was advised, with no changes discussed. 3. Anxiety And Depression The patient is on citalopram 10 mg for anxiety and depression. He denies any acute symptoms and no changes to his current treatment were discussed. 4. History Of Coronary Artery Bypass Grafting The patient underwent coronary artery bypass grafting following an abnormal EKG detected prior to knee surgery. He is currently on metoprolol and an antiplatelet medication, with no changes to his cardiac management discussed. 5. Polymyalgia Rheumatica The patient reports resolution of polymyalgia rheumatica after treatment with prednisone. He continues to receive cortisone injections for unrelated shoulder pain. 6. Anemia The patient has a history of anemia with recent labs showing hemoglobin 12.8 and hematocrit 37.7. His BUN was elevated at 40, suggesting possible dehydration, and monitoring was advised. 7. Hypertension The patient is on metoprolol for hypertension management. No changes to his antihypertensive regimen were discussed during the visit. During the visit, I discussed with the patient the importance of continuing his current medication regimen for hyperlipidemia, vitamin D deficiency, and anxiety and depression. We reviewed his history of coronary artery bypass grafting and the need for ongoing cardiac medications. I also advised monitoring his anemia and BUN levels, suggesting possible dehydration. The patient was informed about the blood work orders and the process for obtaining them without fasting. Orders: Orders Vitamin B12 and Folate Today Z00.00 - Encounter for general adult medical examination without abnormal findings Hemoglobin A1c Today Z00.00 - Encounter for general adult medical examination without abnormal findings Magnesium Today Z00.00 - Encounter for general adult medical examination without abnormal findings Vitamin D 25-OH Total Today Z00.00 - Encounter for general adult medical examination without abnormal findings TSH reflex Free T4 Today Z00.00 - Encounter for general adult medical examination without abnormal findings Patient Instructions: - Continue taking all prescribed medications as directed. - Schedule and complete the ordered blood work at your convenience, no fasting required. - Maintain regular contact with your daughter for emotional support. - Monitor for any new symptoms or changes in your health and report them prompt ly.
[2025-05-03 10:07] VITALS: BP 124/60; PULSE 62; TEMP 36.6; O2SAT 96; BMI 24.7
--- OUTSIDE RECORDS SUMMARY | 2025-05-03 10:20 | XMS_ITS | Data Portability ---
Author Organization [facility], [facility] Address [address] [place] [address] Care Team Providers Care Devops Consultant Name Role Phone REEMA MOLINA Primary Care Provider Assessment No assessment recorded. Plan of Treatment Reminders Order Date Submit Date Provider Last Modified By Organization Details Last Modified Time Details Appointments NEW PATIENT 2024 01:45P M Earl Eason MD Not available Not available Not available RECHECK 2024 08:30A M Tobias Subramanian PA-C Not available Not available Not available Lab None recorded. Referral None recorded. Procedures None recorded. Surgeries None recorded. Imaging XR, lumbar spine, 2 view - 325 2v lspine 2024 025 [email or web address] 8 [facility] Office, [address], [place], [address], 01/28/2025 11:11:47 XR, lumbosacr al spine, 4 or more view - 325 4v lspine 2024 025 [email or web address] 8 [facility] Office, [address], [address], [place], [address], 12/01/2024 10:18:25 Medication Orders None recorded. Patient TargetsNo targets recorded. Patient InstructionsNo instructions recorded. Reason for Referral None Reported. Results Created Date Observation Date Name Description Value Unit Range Abnormal Flag Note LastModifiedBy Organization Detail LastModifiedTime 12/01/1912/01/2024 XR, lumbo sacra l spine , 4 or more view http:/ [email or web address] ?Encry pted=s hAaTro YD8dLq bEUv6g %2BXZw aYqtaq 0bqfl% 2Fg9IQ a4ajBk vP9nXo QUaueC m3YtLR FvZlg [facility] 3k0628 AC0Kqb 3mBVKu mKiQtr MwF INTERFACE [facility] [address], [place], [address], 12/01/2024 08:48:46 12/01/19 25 12/01/2024 XR, lumbo sacra l spine , 4 or more view http:/ [email or web address] ?Encry pted=s hAaTro YD8dLq bEUv6g %2BXZw aYqtaq 0bqfl% 2Fg9IQ a4ajBk vP9nXo QUaueC m3YtLR FvZlg [place] HZtai3 1y8553 AC0Kqb 3mBVKu mKiQtr MwF INTERFACE [facility] [address] [facility] [address], [place], [address], 12/01/2024 08:48:48 01/29/20 25 01/28/2025 XR, lumba r spine , 2 view http:/ [email or web address] ?Encry pted=s hAaTro YD8dLq bEUv6g %2BXZw aYqtaq 0bqfl% 2Fg9IQ a4ajBk vP9nXo QUaueC m3YtLR [address] 8l2798 AC0KqY n%2BFW aKlKiQ trMwF INTERFACE [facility] [address], [place], [address], 01/28/2025 08:46:00 01/29/20 25 01/28/2025 XR, lumba r spine , 2 view [email or web address]:/ [email or web address] ?Encry pted=s hAaTro YD8dLq bEUv6g %2BXZw aYqtaq 0bqfl% 2Fg9IQ a4ajBk vP9nXo QUaueC m3YtLR FvZlgJ JJ8mAn HZtai3 7d1601 AC0KqY n%2BFW aKlKiQ trMwF INTERFACE [facility] [address] [facility] [address], [place], [address], 01/28/2025 08:46:02 Result Notes Documentation Provider Name and Address Organization Details Recorded Time Xr, Lumbosacral Spine, 4 Or More View : [email or web address] Encrypted=qnYzHgfHI4sBgnZ Uv6g%4QPBieGnmog6gzsm%2Fg 6DDc9jlScjX7sJmEOgjjWo7Ih SDCtQtnXJT2hKtVGxzs49x156 6YL4Cxo6fJUHdbBuBfdOwF Not Available [facility] 12/01/2024 08:48: 47 Xr, Lumbosacral Spine, 4 Or More View : [email or web address] Encrypted=njDvPeyPZ8iMgbQ Uv6g%0LDMlxEhjfz6xqwb%2Fg 3SOz1yvHaaP6bVrGHqoiOw4Ko SNYrEbjUQQ8vWrLCuky05m778 4JO9Auz9iIMPfoZlJesWmB Not Available [facility] 12/01/2024 08:48: 49 Xr, Lumbar Spine, 2 View : [email or web address] Encrypted=hfGeDqpJI1rAjyU Uv6g%4CVYmtLetmd9izag%2Fg 4RGj4abKhoI3oHqVDzheBe4Me QYLsLibXXW3rQrLZyql88u131 3HX6TwGi%2BFWaKlKiQtrMwF Not Available [facility] 01/28/2025 08:4 6:01 Xr, Lumbar Spine, 2 View : [email or web address] 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 764112677 Active 2023 Nicolás Grullon MD [address], [place], [address] , [facility] 4 10:07:25 Lumbar spondyloli sthesis 5335280775343 02 Active 2023 Nicolás Grullon MD [address], [place], [address] , [facility] 4 10:07:42 Lumbar spondylosi s 424786175 Active 2024 Nicolás Grullon MD [address], [place], [address] , [facility] 5 09:36:20 History of major orthopedic surgery 689709497 Active 2013 Status : 'A'; Not Available [facility] 4 11:58:39 Pain of right hip joint 5200083080393 02 Active 2020 Status : 'A'; Not Available [facility] 4 11:58:39 Rotator cuff arthropath y of right shoulder 3867944842670 9106 Active 2023 Tobias Subramanian PA-C [address], [place], [address] , [facility] 4 06:28:57 Pain of right shoulder joint 9658277707394 9100 Active 2023 Tobias Subramanian PA-C [address], [place], [address] , [facility] 4 08:26:43 Problem Notes None recorded. Procedures Surgical History Date Name Laterality Status Provider Name and Address Organization Details Recorded Time 5 Sports Shoulder completed Tobias Subramanian PA-C [address], [place], [address], [facility] 04/04/2025 06:11:50 5 Sports Shoulder completed Tobias Subramanian PA-C [address], [place], [address], [facility] 01/05/2025 04:54:32 4 Sports Shoulder completed Tobias Subramanian PA-C [address], [place], [address], [facility] 10/05/2024 08:55:39 4 Sports Shoulder Bilateral completed Tobias Subramanian PA-C [address], [place], [address], [facility] 07/06/2024 09:02:36 4 Sports Shoulder completed Tobias Subramanian PA-C [address], [place], [address], [facility] 03/29/2024 06:28:45 Imaging Results None recorded. Procedure Notes None recorded. Medical Equipment None Reported. Allergies No known drug allergies Medications Name Sig Start Date Stop Date Status Note LastModified by Organization Details LastModified Time amoxicillin 500 mg capsule TAKE 4 CAPSULES BY MOUTH 1 HOUR BEFORE DENTAL VISIT 12/01 completed Not Available Not Available Not Available atorvastati n 80 mg tablet active Not Available Not Available Not Available citalopram 10 mg tablet active Not Available Not Available Not Available penicillin V potassium 500 mg tablet 12/01 completed Not Available Not Available Not Available clopidogrel 75 mg tablet active Not Available Not Available Not Available tramadol 50 mg tablet 12/01 completed Not Available Not Available Not Available lorazepam 0.5 mg tablet active Not Available Not Available Not Available pseudoephed rine-guaife nesin ER 80-700 mg tablet,exte nded release as directed 1 Q 4 - 6 hours prn pain. Do not drive while on this medicatio n 09/25 completed Statu s: 'Disc ontin ued'; Not Available Not Available Not Available metoprolol succinate ER 25 mg tablet,exte nded release 24 hr active Not Available Not Available Not Available lorazepam 1 mg tablet 01/28 completed Not Available Not Available Not Available ipratropium bromide 42 mcg (0.06 %) nasal spray 01/28 completed Not Available Not Available Not Available oxycodone HCl-oxycodo ne-ASA 1-2 TABS Q 4-[address] WHILE TAKING THIS MEDICATIO N 12/01 completed Statu s: 'Curr ent'; Not Available Not Available Not Available Vitals Date Recorded Body height Body mass index (BMI) Body weight Provider Name and Address Organization Details Last Updated DateTime 12/01/2024 175.26 cm 24.5 kg/m2 76250.33 g Naren quick [facility] 12/01/2024 08:37:11 Date Recorded Body height Body mass index (BMI) Body weight Provider Name and Address Organization Details Last Updated DateTime 01/05/2025 175.26 cm 24.5 kg/m2 77720.33 g Tobias Subramanian PA-C [address], [place], [address], [facility] 01/05/2025 08:37:19 Date Recorded Body height Body mass index (BMI) Body weight Provider Name and Address Organization Details Last Updated DateTime 01/28/2025 175.26 cm 24.5 kg/m2 31266.33 g Naren quick [facility] 01/28/2025 08:37:19 Date Recorded Body height Body mass index (BMI) Body weight Provider Name and Address Organization Details Last Updated DateTime 04/04/2025 175.26 cm 24.5 kg/m2 50956.33 g Tobias Subramanian PA-C [address], [place], [address], [facility] 04/04/2025 08:28:51 Date Recorded Body height Body mass index (BMI) Body weight Provider Name and Address Organization Details Last Updated DateTime 10/05/2024 175.26 cm 24.5 kg/m2 24609.33 g Dara Frances [place] [facility] 10/05/2024 08:30:38 Social History None recorded. Functional Status None recorded. Mental Status None recorded. Family History Nothing Reported. Medical History Condition Response Anxiety/Depression Y Heart Trouble Y Stroke Y Cholesterol Y Sleep Apnea Y Hypertension Y Past Encounters Encounter ID Performer Location Encounter Start Date Encounter Closed Date Diagnosis/Indication Diagnosis SNOMED-CT Code Diagnosis ICD10 Code Diagnosis Note [id number] [facility] [address] [place] [address] 03/29/2024 08:13:35 04/08/2024 12:58:42 Rotator cuff arthropathy of right shoulder 5821346674 8969786 M25.811 Pain of ri ght shoulder joint 9141026141 7681890 M25.360 [id number] Nicolás Grullon MD [place] [address] [place] [address] 04/14/2024 08:00:55 05/05/2024 12:00:09 Lumbar spondylolisthesis 5709590730 62762 M43.16 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 He is doing very well and his foot drop has resolved. Radiograph s note some lucency around the screws however. I will order CT scan to evaluate fusion. Additional ly I will check his vitamin D level. He will follow-up after the imaging and laboratori es are completed. 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 521062905 M96.0 [id number] [facility] [address] [place] [address] 07/06/2024 08:17:35 07/23/2024 08:07:01 Rotator cuff arthropathy of right shoulder 6710849140 0358558 M25.826 [id number] [facility] [address] [place] [address] 10/05/2024 08:12:30 10/25/2024 09:00:46 Rotator cuff arthropathy of right shoulder 8134491906 8656672 M25.565 [id number] MD [facility] [place] [address] [place] [address] 12/01/2024 08:07:32 12/15/2024 10:33:04 Lumbar spondylolisthesis 2701359543 90831 M43.16 [id number] Tobias Subramanian PA-C [facility] [address] [place] [address] 01/05/2025 08:06:28 01/20/2025 15:11:15 Rotator cuff arthropathy of right shoulder 0568419160 8266215 M25.190 [id number] Nicolás Grullon MD [facility] [place] [address] [place] [address] 01/28/2025 08:09:52 02/16/2025 11:25:35 Lumbar spondylosis 394594720 M47.816 Lumbar spondylolisthesis 3007040242 84467 M43.16 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 Lumbar spondyloli sthesis with radiculopa thy status post L3-4 lateral lumbar interbody fusion and L4-5 transforam inal lumbar interbody fusion with L3-5 posterior fusion2. Pseudoarth rosis at L4-5? l ucency around L5 screws, stable no change in alignment or position from prior radiograph s 1. Continue bone stimulator until device expires (approxima tely 4-5 months)2. Continue vitamin D supplement ation3. May resume all desired activities except heavy lifting4. No restrictio ns on exercise within reasonable limits5. Return to clinic as needed6. Patient educated on warning signs and symptoms to monitor ICD-10: M43.16 - Spondyloli sthesis, lumbar regionICD- 10: Z98.1 - Status post lumbar fusionICD? 1 0: M96.0 Pseudoarth rosis after fusion [id number] [facility] [address] [place] [address] 04/04/2025 08:09:57 04/06/2025 07:29:32 Rotator cuff arthropathy of right shoulder 3573513747 2948621 M25.811 Health Concerns Section Related Observation LastModified by Organization Detai ls LastModified Time None Recorded Concern Status LastModified by Organization Details LastModified Time None Recorded Advance Directives Directive None Recorded Payers Insurance Date Sequence Insurance Name Policy Number Policy Walker Covered Member ID Walker Member ID Guarantor Name 04/29/2025 1 [facility] (MEDICARE REPLACEMENT/A DVANTAGE - PPO) [id number] Lucien Ayoub [id number] Lucien Ayoub Notes Date Note Type Note Provider Name and Address Organization Details Recorded Time 4 text/html Patient Visit NoteI am seeing the patient today under the supervision of Dr. Mullins who was available but who did not see the patient.REASON FOR VISITRobadithya returns today 88-year-old male reporting increased right shoulder pain. He has been caring for his she is been falling home secondary to orthostatic hypotension. She is 89 he is not at the point where he can take time off to have shoulder surgery although he understands reverse total shoulder arthroplasty is what he needs. He comes in with increased pain and discomfort in that right shoulder. Interval history: Lucien returns today with recurring right shoulder pain, he continues to care for his therefore is not a good candidate for reverse total shoulder arthroplasty. He now reports increased left shoulder pain he has had previous attempted rotator cuff repair years ago but now has recurring symptoms.PAST MEDICAL/SURGICAL HISTORYCurrent medications per intake sheet.PHYSICAL FINDINGSThe patient is well appearing, in no apparent distress, alert and oriented to person, place and time. Gait is symmetric. No significant swelling, warmth or erythema about either shoulder.Bilateral shoulder exam : ROM forward elevation 160 degrees with altered mechanics, ER 45, IR back pocket there is mild tenderness to palpation about the shoulder, moderate crepitus through mid range manipulations. 4/5 strength of the shoulder with ER, Forward flexion. Negative belly press test. Minimal tenderness overlying AC joint.Cervical Exam demonstrates limited ROM without radicular symptoms.Peripheral, vascular, lymphatic examination, skin, neurologic coordination, reflexes, sensation are within normal limits. New x-rays ordered and independently reviewed today 4 views of the right shoulder findings include cephalad humeral head migration, cystic changes involving greater tuberosity calcification with moderate AC joint arthrosis, type II acromion, glenohumeral joint remains relatively well-preservedASSESSMENT Right shoulder chronic rotator cuff tear, early phases of rotator cuff arthropathy.PLANThe patient was counseled regarding time lines appropriateness of surgery however at this point he really needs to be present for his who is dependent upon him for her care. He can be an extended period of time to have shoulder arthroplasty. All this discussed patient and plan follow-up arrangements going forward as symptoms require. Tobias Subramanian PA-C [address] [facility] [address], [place], [address], [facility] 10/05/2024 08:56:23 5 text/html Follow-up Visit for Post-Lumbar Fusion with Pseudoarthrosis Subjective:89-year-old male presents for follow-up status post L3-4 lateral lumbar interbody fusion, L4-5 transforaminal interbody fusion, and L3-L5 posterior instrumented spinal fusion performed on February 18, 2023. Patient reports being 'aware' of his back but denies significant pain. He maintains an active lifestyle with daily exercises, including arm exercises with 8-pound weights and stationary bicycle. Patient performs regular walking and reports being able to manage activities of daily living, including caring for his 89-year-old .Patient reports a recent episode yesterday of diffuse body tingling affecting multiple joints (ankles, knees, hips, wrists, elbows, and shoulders) with associated pain. Symptoms were severe enough to disturb sleep. He took Tylenol for relief. Also notes experiencing chills this morning. Denies respiratory symptoms. Objective: PHYSICAL EXAM:Respiration Rate 14-16Height and Weight per aboveNormal Development without evidence of gross deformitiesOriented to person/place/timeNormal mood and affectNo swelling in bilateral lower extremitiesHead and Neck: Neck was supple without evidence of defects. No atrophy of the neck was visualized. Spine:Examination of the spine demonstrated no crepitation with palpation of the spinous process.The patient was able to flex and extend. No instability of the spine was demonstrated on physical exam. The spine had good strength and tone.Well-healed scars noted. No skin or hair changes- Normal gait with ability to walk on toes and heels- Good strength in lower extremities- Normal reflexes and sensation in bilateral lower extremities- Good range of motion in back Imaging:I independently reviewed 4 view radiographs of the lumbar spine obtained today to include AP, lateral, flexion and extension and note:-s/p L3-4 lateral lumbar interbody fusion, L4-5 interbody fusion, L3-L5 posterior instrumentation. no evidence of subsidence. Posterior screws without with some haloing.- Stable appearance compared to previous imaging- Persistent lucency around L5 screws noted- No evidence of hardware failure or increased motion- Total of 6 screws visualized in construct- Evidence of pseudoarthrosis/fibrous union, but stable I independently again reviewed CT scan of the lumbar spine obtained April 26, 2024 which notes fusion through the L3-4 interbody. L4-5 without evidence of osseous fusion through the interbody cage or posterior laterally. Lucency around the screws consistent with loosening. Multilevel degenerative changes. Assessment and Plan:1. Lumbar spondylolisthesis, spondylosis, radiculopathy and foot dropstatus postL3-L5 spinal fusion with stable asymptomatic pseudoarthrosis:- Clinically stable with good functional status- Continue current activity level and exercise regimen- Continue Vitamin D supplementation- Continue using bone stimulator until supply exhausted 2. Acute onset polyarthralgia with paresthesias:- Continue Tylenol as needed- Monitor for development of respiratory symptoms- Advised to seek prompt medical attention if flu-like symptoms develop 3. Plan:- Follow up in 6 months- Continue current conservative management- No surgical intervention indicated at this time given clinical stability Additional Notes:Patient demonstrates good compliance with post-operative care and maintains functional independence despite presence of pseudoarthrosis. Recent onset of systemic symptoms warrants monitoring but appears unrelated to spine condition. ? Nicolás Grullon MD [address] [place] [address] [address], [place], [address], [facility] 12/01/2024 09:22:09 5 text/html I am seeing the patient today under the supervision of Dr. Mullins who was available but who did not see the patient.REASON FOR VISITRobadithya returns today 88-year-old male reporting increased right shoulder pain. He has been caring for his she is been falling home secondary to orthostatic hypotension. She is 89 he is not at the point where he can take time off to have shoulder surgery although he understands reverse total shoulder arthroplasty is what he needs. He comes in with increased pain and discomfort in that right shoulder.Clinical Update:Lucien returns today with recurring right shoulder pain, he continues to care for his therefore is not a good candidate for reverse total shoulder arthroplasty. He now reports increased left shoulder pain he has had previous attempted rotator cuff repair years ago but now has recurring symptoms.PAST MEDICAL/SURGICAL HISTORYCurrent medications per intake sheet.PHYSICAL FINDINGSThe patient is well appearing, in no apparent distress, alert and oriented to person, place and time. Gait is symmetric. No significant swelling, warmth or erythema about either shoulder.Bilateral shoulder exam : ROM forward elevation 160 degrees with altered mechanics, ER 45, IR back pocket there is mild tenderness to palpation about the shoulder, moderate crepitus through mid range manipulations. 4/5 strength of the shoulder with ER, Forward flexion. Negative belly press test. Minimal tenderness overlying AC joint.Cervical Exam demonstrates limited ROM without radicular symptoms.Peripheral, vascular, lymphatic examination, skin, neurologic coordination, reflexes, sensation are within normal limits. New x-rays ordered and independently reviewed today 4 views of the right shoulder findings include cephalad humeral head migration, cystic changes involving greater tuberosity calcification with moderate AC joint arthrosis, type II acromion, glenohumeral joint remains relatively well-preservedASSESSMENT Right shoulder chronic rotator cuff tear, early phases of rotator cuff arthropathy.PLANThe patient was counseled regarding time lines appropriateness of surgery however at this point he really needs to be present for his who is dependent upon him for her care. He can be an extended period of time to have shoulder arthroplasty. All this discussed patient and plan follow-up arrangements going forward as symptoms require. Tobias Subramanian PA-C [address] [facility] [address], [place], [address], [facility] 01/05/2025 08:50:24 5 text/html HPI: 89-year-old male presents for follow-up of lumbar spine. Patient underwent L3-4 lateral lumbar interbody fusion and L4-5 transforaminal lumbar interbody fusion with L3-5 posterior fusion on February 18, 2023. Patient reports overall improvement but notes stiffness with prolonged work activities. Denies significant pain. Last seen on 12/01/2024.Prior treatment: Patient currently using bone stimulator. Performing regular exercises including floor exercises. Taking vitamin D supplementation. Nicolás Grullon MD [address] [facility] [address], [place], [address], [facility] 01/28/2025 09:38:19 5 text/html I am seeing the patient today under the supervision of Dr. Mullins who was available but who did not see the patient.REASON FOR VISITRobert returns today 88-year-old male reporting increased right shoulder pain. He has been caring for his she is been falling home secondary to orthostatic hypotension. She is 94 he is not at the point where he can take time off to have shoulder surgery although he understands reverse total shoulder arthroplasty is what he needs. He comes in with increased pain and discomfort in that right shoulder.Clinical Update:Lucien returns today with recurring right shoulder pain, he continues to care for his therefore is not a good candidate for reverse total shoulder arthroplasty. He now reports increased left shoulder pain he has had previous attempted rotator cuff repair years ago but now has recurring symptoms. PAST MEDICAL/SURGICAL HISTORYCurrent medications per intake sheet.PHYSICAL FINDINGSThe patient is well appearing, in no apparent distress, alert and oriented to person, place and time. Gait is symmetric. No significant swelling, warmth or erythema about either shoulder.Bilateral shoulder exam : ROM forward elevation 160 degrees with altered mechanics, ER 45, IR back pocket there is mild tenderness to palpation about the shoulder, moderate crepitus through mid range manipulations. 4/5 strength of the shoulder with ER, Forward flexion. Negative belly press test. Minimal tenderness overlying AC joint.Cervical Exam demonstrates limited ROM without radicular symptoms.Peripheral, vascular, lymphatic examination, skin, neurologic coordination, reflexes, sensation are within normal limits. New x-rays ordered and independently reviewed today 4 views of the right shoulder findings include cephalad humeral head migration, cystic changes involving greater tuberosity calcification with moderate AC joint arthrosis, type II acromion, glenohumeral joint remains relatively well-preservedASSESSMENT Right shoulder chronic rotator cuff tear, early phases of rotator cuff arthropathy.PLANThe patient was counseled regarding time lines appropriateness of surgery however at this point he really needs to be present for his who is dependent upon him for her care. He can be an extended period of time to have shoulder arthroplasty. All this discussed patient and plan follow-up arrangements going forward as symptoms require. Tobias Subramanian PA-C [address], [place], [address], [facility] - [facility] 04/04/2025 09:24:49
== END 2025-05-03 10:33 | disposition home or self-care (01) ==
LOC: HO.HMCSH 09:33
PROVIDERS: PCP Internal Medicine; Visit Provider Physician Assistant Medical
DX: Z76.89 Persons encountering health services in other specified circumstances (principal); E78.5 Hyperlipidemia, unspecified; E55.9 Vitamin D deficiency, unspecified; F41.9 Anxiety disorder, unspecified; F32.A Depression, unspecified; Z95.1 Presence of aortocoronary bypass graft; M35.3 Polymyalgia rheumatica; D64.9 Anemia, unspecified; I10 Essential (primary) hypertension

== ENCOUNTER → 2025-05-03 09:33 | Outpatient (BNVA) | payer MEDICARE, SELFPAY | PROVIDERS: PCP Internal Medicine; Visit Provider Physician Assistant Medical | DX: E78.5 Hyperlipidemia, unspecified (principal); Z76.89 Persons encountering health services in other specified circumstances; E55.9 Vitamin D deficiency, unspecified; F41.9 Anxiety disorder, unspecified; F32.A Depression, unspecified; M35.3 Polymyalgia rheumatica; D64.9 Anemia, unspecified; I10 Essential (primary) hypertension; Z95.1 Presence of aortocoronary bypass graft | CPT/HCPCS: 96127; 99202 ==

== ENCOUNTER 2025-05-05 08:15 | Outpatient (REF) | payer MEDICARE, SELFPAY ==
--- OUTSIDE RECORDS SUMMARY | 2025-05-05 08:21 | XMS_ITS | Data Portability ---
Author Organization [facility], [facility] Address [address] [place] [address] Care Team Providers Care On Air Announcer Name Role Phone REEMA MOLINA Primary Care [...] 325 2v lspine 2024 025 [email or web address] 8 [facility] Office, [address], [place], [address], 01/28/2025 11:11:47 XR, lumbosacr al spine, 4 or more view - 325 4v lspine 2024 025 [email or web address] 8 [facility], [address], [place], [address], 12/01/2024 10:18:25 Medication Orders None recorded. Patient [...] 0bqfl% 2Fg9IQ a4ajBk vP9nXo QUaueC m3YtLR FvZlg [facility] Campustai3 4d7019 AC0Kqb 3mBVKu mKiQtr MwF INTERFACE [facility] [address], [place], [address], 12/01/2024 08:48:46 12/01/19 25 12/01/2024 XR, lumbo sacra l spine , 4 or more view [email or web address]:/ [email or web address] ?Encry pted=s hAaTro YD8dLq bEUv6g %2BXZw aYqtaq 0bqfl% 2Fg9IQ a4ajBk vP9nXo QUaueC m3YtLR FvZlg JJ8[place] HZtai3 8w2618 AC0Kqb 3mBVKu mKiQtr MwF INTERFACE [facility] [address], [place], [address], 12/01/2024 08:48:48 01/29/20 25 01/28/2025 XR, lumba r spine , 2 view [email or web address]:/ [email or web address] ?Encry pted=s hAaTro YD8dLq bEUv6g %2BXZw aYqtaq 0bqfl% 2Fg9IQ a4ajBk vP9nXo QUaueC m3YtLR [address] 2y6857 AC0KqY n%2BFW aKlKiQ trMwF INTERFACE [facility] [address], [place], [address], 01/28/2025 08:46:00 01/29/20 25 01/28/2025 XR, lumba r spine , 2 view [email or web address]:/ [email or web address] ?Encry pted=s hAaTro YD8dLq bEUv6g %2BXZw aYqtaq 0bqfl% 2Fg9IQ a4ajBk vP9nXo QUaueC m3YtLR FvZlgJ JJ8mAn HZtai3 6g3086 AC0KqY n%2BFW aKlKiQ trMwF INTERFACE [facility] Office [address] [facility] [address], [place], [address], 01/28/2025 08:46:02 Result Notes Documentation Provider Name and Address Organization Details Recorded Time Xr, Lumbosacral Spine, 4 Or More View : [email or web address]? Encrypted=urWfBthYJ5dPjxO Uv6g%1LEQyfVvghw5mnlc%2Fg 4SRu4wnHqnQ3xSoVPxxdBa6Te NYBwVwkCAU1nKnWDacl36d268 9NE6Dhl6yKLOlyZsWmxDoR Not Available [facility] 12/01/2024 08:48: 47 Xr, Lumbosacral Spine, 4 Or More View : [email or web address]? Encrypted=lvYrWdbQO4mMvnT Uv6g%8KTEmvCqwwv8iqzg%2Fg 3TGt3tkGfaL6fEkGXmxhKt7Jy NGLzJyiQRZ7iHwFKfmf36o888 6TY3Enk4wRDAqaXpOhyMfR Not Available [facility] 12/01/2024 08:48: 49 Xr, Lumbar Spine, 2 View : [email or web address]? Encrypted=mvMtFauTC5hPfdJ Uv6g%6SJZchVsvmy0zadd%2Fg 1VKv6icFtjT0cInJNbjdLc1Ay IKFtZdtPHU2qTgGTcvc34y254 7UE7OaTm%2BFWaKlKiQtrMwF Not Available [facility] 01/28/2025 08:4 6:01 Xr, Lumbar Spine, 2 View : [email or web address]? 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 4 10:07:25 Lumbar spondyloli sthesis 0601944525822 02 Active 2023 Nicolás Grullon MD [address], [place], [address] , [facility] 4 10:07:42 Lumbar spondylosi s 038259969 Active 2024 Nicolás Grullon MD [address], [place], [address] , [facility] 5 09:36:20 History of major orthopedic surgery 634634694 Active 2013 Status : 'A'; Not Available [facility] 4 11:58:39 Pain of right hip joint 5398720258478 02 Active 2020 Status : 'A'; Not Available [facility] 4 11:58:39 Rotator cuff arthropath y of right shoulder 9075058755355 9106 Active 2023 Tobias Subramanian PA-C [address], [place], [address] , [facility] 4 06:28:57 Pain of right shoulder joint 9803492574829 9100 Active 2023 Tobias Subramanian PA-C [address], [place], [address] , [facility] 4 08:26:43 Problem Notes None recorded. Procedures Surgical History Date Name Laterality Status Provider Name and Address Organization Details Recorded Time 5 Sports Shoulder completed Tobias Subramanian PA-C [address], [place], [address], [facility] 04/04/2025 06:11:50 5 Sports Shoulder completed Tobias Subramanian PA-C [address], [place], [address], [facility] 01/05/2025 04:54:32 4 Sports Shoulder completed Tobias Subramanian PA-C [address], [place], [address], [facility] 10/05/2024 08:55:39 4 Sports Shoulder Bilateral completed Tobias Subramanian PA-C [address], [place], [address], [facility] 07/06/2024 09:02:36 4 Sports Shoulder completed Tobias Subramanian PA-C [address], [place], [address], [facility] 03/29/2024 06:28:45 Imaging Results [...] Updated DateTime 12/01/2024 175.26 cm 24.5 kg/m2 95511.33 g Naren quick [facility] 12/01/2024 08:37:11 Date Recorded Body height Body mass index (BMI) Body weight Provider Name and Address Organization Details Last Updated DateTime 01/05/2025 175.26 cm 24.5 kg/m2 27387.33 g Tobias Subramanian PA-C [address], [place], [address], [facility] 01/05/2025 08:37:19 Date Recorded Body height Body mass index (BMI) Body weight Provider Name and Address Organization Details Last Updated DateTime 01/28/2025 175.26 cm 24.5 kg/m2 02114.33 g Naren quick [facility] 01/28/2025 08:37:19 Date Recorded Body height Body mass index (BMI) Body weight Provider Name and Address Organization Details Last Updated DateTime 04/04/2025 175.26 cm 24.5 kg/m2 36147.33 g Tobias Subramanian PA-C [address], [place], [address], [facility] 04/04/2025 08:28:51 Date Recorded Body height Body mass index (BMI) Body weight Provider Name and Address Organization Details Last Updated DateTime 10/05/2024 175.26 cm 24.5 kg/m2 91193.33 g Dara Frances [place] - [facility] 10/05/2024 08:30:38 Social History None recorded. Functional Status None recorded. Mental Status None recorded. Family History Nothing Reported. Medical History Condition Response Anxiety/Depression Y Heart Trouble Y Cholesterol Y Stroke Y Sleep Apnea Y Hypertension Y Past Encounters Encounter ID Performer Location Encounter Start Date Encounter Closed Date Diagnosis/Indication Diagnosis SNOMED-CT Code Diagnosis ICD10 Code Diagnosis Note [id number] [facility] [address] [place] [address] 03/29/2024 08:13:35 04/08/2024 12:58:42 Rotator cuff arthropathy of right shoulder 0651455003 9223725 M25.811 Pain of ri ght shoulder joint 5061800129 3666108 M25.774 [id number] Nicolás Grullon MD [place] [address] [place] [address] 04/14/2024 08:00:55 05/05/2024 12:00:09 Lumbar spondylolisthesis 1713960213 37618 M43.16 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 458618264 M96.0 [id number] [facility] [address] [place] [address] 07/06/2024 08:17:35 07/23/2024 08:07:01 Rotator cuff arthropathy of right shoulder 2266931683 1469094 M25.231 [id number] [facility] [address] [place] [address] 10/05/2024 08:12:30 10/25/2024 09:00:46 Rotator cuff arthropathy of right shoulder 5260828763 4056401 M25.329 [id number] MD [facility] - [place] [address] [place] [address] 12/01/2024 08:07:32 12/15/2024 10:33:04 Lumbar spondylolisthesis 4305272153 49004 M43.16 [id number] Tobias Subramanian PA-C [facility] [address] [place] [address] 01/05/2025 08:06:28 01/20/2025 15:11:15 Rotator cuff arthropathy of right shoulder 9477210003 8105954 M25.129 [id number] Nicolás Grullon MD [facility] - [place] [address] [place] [address] 01/28/2025 08:09:52 02/16/2025 11:25:35 Lumbar spondylosis 677201849 M47.816 Lumbar spondylolisthesis 2006873442 66882 M43.16 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 Lumbar spondyloli sthesis with radiculopa thy status post L3-4 lateral lumbar interbody fusion and L4-5 transforam inal lumbar interbody fusion with L3-5 posterior fusion2. Pseudoarth rosis at L4-5 lucency around L5 screws, stable no change in [...] regionICD- 10: Z98.1 - Status post lumbar fusionICD 10: M96.0 Pseudoarth rosis after fusion [id number] [facility] 2[address] [place] [address] 04/04/2025 08:09:57 04/06/2025 07:29:32 Rotator cuff arthropathy of right shoulder 2284923139 0550509 M25.811 Health Concerns Section Related Observation LastModified by Organization Detai ls LastModified Time None Recorded Concern Status LastModified by Organization Details LastModified Time None Recorded Advance Directives Directive None Recorded Payers Insurance Date Sequence Insurance Name Policy Number Policy Walker Covered Member ID Walker Member ID Guarantor Name 04/29/2025 1 [facility] (MEDICARE REPLACEMENT/A DVANTAGE - PPO) [id number] Lucien Ayoub [id number] Lucien Ayoub Notes Date Note Type Note [...] as symptoms require. Tobias Subramanian PA-C [address] [facility] [address], [place], [address], [facility] - [facility] 10/05/2024 08:56:23 5 text/html [...] monitoring but appears unrelated to spine condition. Nicolás Grullon MD [address] [facility] [address], [place], [address], [facility] - [facility] 12/01/2024 09:22:09 5 text/html I am seeing [...] as symptoms require. Tobias Subramanian PA-C [address], [place], [address], [facility] 01/05/2025 08:50:24 5 text/html HPI: 89-year-old male [...] vitamin D supplementation. Nicolás Grullon MD [address] [facility] [address], [place], [address], [facility] 01/28/2025 09:38:19 5 text/html I am seeing [...] as symptoms require. Tobias Subramanian PA-C [address] [facility] [address], [place], [address], [facility] - [facility] 04/04/2025 09:24:49
[2025-05-05 09:10] LABS: Estimated Average Glucose 120 mg/dL; Hemoglobin A1c % 5.8 % (<6.0); Total Hemoglobin (HGBA1C) 3396.0186 umol/L
[2025-05-05 10:15] LABS: TSH reflex Free T4 1.35 uIU/mL (0.32-4.0); Vitamin D 25-OH Total 83.9 ng/mL (>30)
[2025-05-05 10:27] LABS: Vitamin B12 754 pg/mL (200-900)
== END 2025-05-05 08:16 | disposition home or self-care (01) ==
LOC: HO.LAB 08:15
PROVIDERS: PCP Internal Medicine; Visit Provider Physician Assistant Medical
DX: Z00.00 Encounter for general adult medical examination without abnormal findings (principal); Z13.1 Encounter for screening for diabetes mellitus; Z13.29 Encounter for screening for other suspected endocrine disorder
CPT/HCPCS: 36415; 82306; 82607; 82746; 83036; 83735; 84443